=== PATIENT | male | born 1960 | race Caucasian/White ===

== ENCOUNTER 2022-01-22 15:15 | Outpatient (REF) | payer MEDICARE, MEDICAID, SELFPAY ==
--- NOTE | ~2022-01-22 | US_ITS ---
EXAMINATION: US RETROPERITONEAL LIMITED (RENAL ONLY) CLINICAL INFORMATION: Other obstructive and reflux uropathy. COMPARISON: US retroperitoneal limited (renal only) 10/07/2019. CT abdomen and pelvis without contrast 10/13/2019. TECHNIQUE: Real-time imaging of the kidneys. FINDINGS: RIGHT KIDNEY: 10.8 x 5.5 x 5.2 cm (SAG x AP x TRV). The kidney is normal in size, contour, and echogenicity. Renal cortical thickness is normal. No hydronephrosis. There is an anechoic cyst in the upper pole measuring 1.6 x 1.5 x 1.7 cm. There is an echogenic stone midpole measuring 0.4 x 0.2 cm. There is an apparent, junctional defect in the lower pole cortex which appears slightly echogenic. LEFT KIDNEY: 11.5 x 5.5 x 3.8 cm (SAG x AP x TRV). The kidney is normal in size, contour, and echogenicity. Renal cortical thickness is normal. No calculi or focal parenchymal lesions. No hydronephrosis. There are multiple punctate echogenic foci without shadowing. A prominent dromedary hump is noted in the midpole. US/US renal BI IMPRESSION: Nonobstructive echogenic stone midpole and anechoic cyst upper pole right kidney. Multiple punctate non-shadowing foci in the left kidney. No calculi. There is no hydronephrosis in either kidney.
== END 2022-01-22 15:16 | disposition home or self-care (01) ==
LOC: HO.US 15:15
PROVIDERS: PCP Internal Medicine; Visit Provider Urology
DX: N13.8 Other obstructive and reflux uropathy (principal)
CPT/HCPCS: 76775

== ENCOUNTER → 2022-02-03 08:31 | Outpatient (BNVA) | payer MEDICARE, MEDICAID, SELFPAY | PROVIDERS: PCP Internal Medicine; Visit Provider Urology | DX: N20.0 Calculus of kidney (principal); R39.12 Poor urinary stream; N52.9 Male erectile dysfunction, unspecified; N48.6 Induration penis plastica | CPT/HCPCS: 51798; 99202 ==

== ENCOUNTER → 2022-05-13 08:48 | Outpatient (BNVA) | payer MEDICARE, MEDICAID, SELFPAY | PROVIDERS: PCP Internal Medicine; Visit Provider Urology | DX: N48.6 Induration penis plastica (principal); N52.9 Male erectile dysfunction, unspecified | CPT/HCPCS: 99212 ==

== ENCOUNTER → 2022-11-19 08:23 | Outpatient (BNVA) | payer MEDICARE, MEDICAID, SELFPAY | PROVIDERS: PCP Internal Medicine; Visit Provider Urology | DX: N52.9 Male erectile dysfunction, unspecified (principal); N48.6 Induration penis plastica; N20.0 Calculus of kidney | CPT/HCPCS: 51798; 99212 ==

== ENCOUNTER 2023-04-29 08:45 | Outpatient (REF) | payer MEDICARE, MEDICAID, SELFPAY ==
--- NOTE | ~2023-04-29 | US_ITS ---
EXAMINATION: US RETROPERITONEAL LIMITED (RENAL ONLY) CLINICAL INFORMATION: Calculus of kidney. COMPARISON: Renal ultrasound 01/22/2022 and 10/07/2019. CT abdomen and pelvis 10/13/2019. TECHNIQUE: Real-time imaging of the kidneys. FINDINGS: RIGHT KIDNEY: 11.3 x 5.8 x 5.5 cm (SAG x AP x TRV). The kidney is normal in size, contour, and echogenicity. Renal cortical thickness is normal. No hydronephrosis. At the interpolar aspect, a 7 mm nonobstructing calculus is seen, with twinkle artifact. At the upper pole, a 2.3 cm in maximal diameter benign, simple cyst is seen. This requires no imaging follow-up. LEFT KIDNEY: 11.8 x 5.8 x 5.5 cm (SAG x AP x TRV). The kidney is normal in size, contour, and echogenicity. There is a dromedary hump. Renal cortical thickness is normal. No calculi or focal parenchymal lesions. No hydronephrosis. There are echogenic foci which do not meet formal ultrasound criteria for calculi. US/US renal BI IMPRESSION: 1. A 7 mm nonobstructing right renal calculus is seen. No definite left renal calculus is seen. No hydronephrosis is noted bilaterally. 2. A 2.3 cm in maximal diameter benign, simple right renal upper pole cyst is seen, for which no imaging follow-up is recommended.
== END 2023-04-29 08:46 | disposition home or self-care (01) ==
LOC: HO.US 08:45
PROVIDERS: Visit Provider Urology
DX: N20.0 Calculus of kidney (principal)
CPT/HCPCS: 76775

== ENCOUNTER → 2023-05-24 09:18 | Outpatient (BNVA) | payer MEDICARE, MEDICAID, SELFPAY | PROVIDERS: Visit Provider Urology | DX: N20.0 Calculus of kidney (principal); N48.6 Induration penis plastica; N52.9 Male erectile dysfunction, unspecified; N40.0 Benign prostatic hyperplasia without lower urinary tract symptoms | CPT/HCPCS: 51798; 99212 ==

== ENCOUNTER 2023-11-07 07:45 | Outpatient (REF) | payer OTHER, SELFPAY ==
--- NOTE | ~2023-11-07 | US_ITS ---
EXAMINATION: US RETROPERITONEAL LIMITED (RENAL ONLY) CLINICAL INFORMATION: Calculus of kidney. COMPARISON: Renal ultrasound 04/29/2023 and 01/22/2022. CT abdomen and pelvis 10/13/2019. TECHNIQUE: Real-time imaging of the kidneys. Limited visualization due to bowel gas. FINDINGS: RIGHT KIDNEY: 11.0 x 5.9 x 5.5 cm (SAG x AP x TRV). Upper pole 2.3 x 2.4 x 2.6 cm cyst with benign features. There is no indication for follow-up imaging. Right renal midpole 0.8 cm calculus. No hydronephrosis. Limited visualization. LEFT KIDNEY: 11.1 x 5.7 x 5.4 cm (SAG x AP x TRV). No hydronephrosis. No renal calculi. Limited visualization. US/US renal BI IMPRESSION: 1. Right renal midpole 0.8 cm calculus. No hydronephrosis. 2. Right upper pole 2.6 cm cyst with benign features. There is no indication for follow-up imaging.
== END 2023-11-07 07:46 | disposition home or self-care (01) ==
LOC: HO.US 07:45
PROVIDERS: PCP Internal Medicine; Visit Provider Urology
DX: N20.0 Calculus of kidney (principal)
CPT/HCPCS: 76775

== ENCOUNTER 2023-12-26 10:31 | Outpatient (AMB) | payer OTHER, SELFPAY ==
--- NOTE | 2023-12-26 12:13 | A.OFFVIS_ITS ---
Intake Intake Visit Reasons: 6m/US(11/07) Allergies No Known Allergies [No Known Allergies*] Allergy (Verified 05/24/23 09:23) Medication List - Last Reconciled 12/26/23 by Abdirashid Lopez MD bupropion HCl mg PO buspirone mg PO ibuprofen mg PO metoprolol succinate ER mg PO metoprolol succinate ER mg PO tadalafil 5 mg PO DAILY 90 days trazodone mg PO venlafaxine ER mg PO HPI HPI Comments History of Present Illness Details 12/26/23---Telehealth---Don is a 63 ye ar old male. He is a patient of Dr. Cabrera. He is seen for the following urologic conditions: - nephrolithiasis - lower urinary tract symptoms - Peyronie's disease - erectile dysfunction The patient states he is doing well. I have reviewed renal ultrasound 11/07/2023. Right renal midpole 0.8 cm calculus. No hydronephrosis. Right upper pole 2.6 cm cyst with benign features. Plan- continue to monitor the kidney stone. Follow-up in 1 year renal ultrasound prior. Continue Cialis 5 mg daily Review of chart: LV: 05/24/23--Continue good effect with daily tadalafil Thinks he passed a stone last week Six month follow-up imaging Nephrolithiasis Longstanding Composition - 08/16 calcium oxalate stone monohydrate 80% Imaging - 01/19 renal ultrasound punctate stones bilateral - 05/20 renal ultrasound question right s mall stone Lower urinary tract symptoms Weak urinary stream Filling incomplete emptying No prior therapy Erectile dysfunction Progressive Able to obtain but cannot maintain erection Good response to daily tadalafil Peyronie's disease Not interfering with intercourse [facility] Medical History History of kidney stones Benign prostatic hyperplasia with lower urinary tract symptoms Other obstructive and reflux uropathy Surgical History History of surgery Review of Systems Const All systems reviewed & are unremarkable except as noted in HPI and below Reports no additional complaints Eyes Reports no additional complaints ENT Reports no additional complaints Card Denies dyspnea Resp Denies cough and Denies dyspnea GI Reports no additional complaints Musc Reports no additional complaints Skin/Breast Denies rash and Denies unusual bruising Neuro Reports no additional complaints Psych Reports no additional complaints Endo Reports no additional complaints Julius/Lymph Reports no additional complaints Aller/Immun Reports no additional complaints Results Reviewed Results Reviewed: Date of Service: 11/07/23 EXAMINATION: US RETROPERITONEAL LIMITED (RENAL ONLY) CLINICAL INFORMATION: Calculus of kidney. COMPARISON: Renal ultrasound 04/29/2023 and 01/22/2022. CT abdomen and pelvis 10/13/2019. TECHNIQUE: Real-time imaging of the kidneys. Limited visualization due to bowel gas. FINDINGS: RIGHT KIDNEY: 11.0 x 5.9 x 5.5 cm (SAG x AP x TRV). Upper pole 2.3 x 2.4 x 2.6 cm cyst with benign features. There is no indication for follow-up imaging. Right renal midpole 0.8 cm calculus. No hydronephrosis. Limited visualization. LEFT KIDNEY: 11.1 x 5.7 x 5.4 cm (SAG x AP x TRV). No hydronephrosis. No renal calculi. Limited visualization. IMPRESSION: 1. Right renal midpole 0.8 cm calculus. No hydronephrosis. 2. Right upper pole 2.6 cm cyst with benign features. There is no indication for follow-up imaging. Assessment & Plan Assessment & Plan (1) Nephrolithiasis: Code(s): N20.0 - Calculus of kidney (2) Erectile dysfunction: Code(s): N52.9 - Male erectile dysfunction, unspecified (3) Peyronie's disease: Code(s): N48.6 - Induration penis plastica (4) Benign prostatic hyperplasia with lower urinary tract symptoms: Code(s): N40.1 - Benign prostatic hyperplasia with lower urinary tract symptoms Plan Follow-up in 1 year renal ultrasound prior Continue Cialis 5 mg daily Orders: Orders US renal BI 10 Months N20.0 - Calculus of kidney Medications: Refilled tadalafil 5 mg PO DAILY 90 tabs 1RF sexual activity 90 days N40.1 - Benign prostatic hyperplasia with lower urinary tract symptoms, N52.01 - Erectile dysfunction due to arterial insufficiency Patient Instructions: The patient had an opportunity to ask questions regarding treatment plan. All questions were answered. Imaging, Laboratory studies and physical exam results were discussed and reviewed in detail. No major barriers to understanding were identified. The patient expressed understanding and agreement with the above treatment plan. The patient is aware they should contact our office by phone for worsening of their current condition or the appearance of new symptoms. Compliance is encouraged with any medications and followup testing that is ordered. It is a privilege to be allowed the opportunity to participate in the urologic care of your patient. If you have any questions or concerns regarding treatment for the above conditions please do not hesitate to contact me. The office telephone contact is [phone]. This note is constructed in part using voice recognition software. While every effort has been made to ensure accuracy credit card analyst errors may have been included. Yours sincerely, Abdirashid Lopez MD Telehealth Telehealth Location of provider rendering services: practice address Location of patient: address on file Patient Identification confirmed using: Name, : Yes Telehealth method: voice only Patient verbally consented to treatment: Yes Patient verbally consented to billing insurance company: Yes Patient informed of any privacy concerns related to visit: Yes Minutes spent on Phone/Video with Pt.: 15 Coding Level of Care Code Tele Est Pt Level 3 (54093) Diagnoses Nephrolithiasis N20.0 Erectile dysfunction N52.9 Peyronie's disease N48.6 Benign prostatic hyperplasia with lower urinary tract symptoms N40.1
== END 2023-12-26 13:04 | disposition home or self-care (01) ==
LOC: HO.HUSH 10:31
PROVIDERS: PCP Internal Medicine; Visit Provider Urology
DX: N20.0 Calculus of kidney (principal); N52.9 Male erectile dysfunction, unspecified; N48.6 Induration penis plastica; N40.1 Benign prostatic hyperplasia with lower urinary tract symptoms
CPT/HCPCS: 99442

== ENCOUNTER → 2023-12-26 10:31 | Outpatient (BNVA) | payer OTHER, SELFPAY | PROVIDERS: PCP Internal Medicine; Visit Provider Urology ==

== ENCOUNTER 2025-02-08 10:43 | Outpatient (REF) | payer MEDICARE, SELFPAY ==
--- NOTE | ~2025-02-08 | US_ITS ---
CLINICAL HISTORY: N20.0 - Calculus of kidney US Renal Comparison: US/SR - US RENAL BI - 11/07/23 08:03 EST Findings: Examination limited by patient's body habitus and bowel gas. Right kidney normal in echotexture measures 12.1 cm x 5.7 cm x 4.8 cm. A 2.2 cm x 2.1 cm x 2.6 cm simple anechoic cyst of the right kidney similar to previous examination. Left kidney normal in echotexture measures 10.6 cm x 5.9 cm x 4.5 cm. No collecting system dilatation of either kidney. Normal color Doppler. Multiple echogenic foci seen in the left kidney which may represent blood vessels versus nonobstructing stones. IMPRESSION: 1. Multiple punctate echogenic foci in left kidney may represent blood vessels versus calculi. 2. No hydronephrosis bilaterally. 3. Stable small right renal simple cyst. This document has been electronically signed by: Shanthi Morales MD on 02/08/2025 17:12:29
--- OUTSIDE RECORDS SUMMARY | 2025-02-08 12:18 | XMS_ITS | Clinical Summary ---
Author Organization [facility] [address] [place] [address] [place] [phone] Phone Care Team Providers Care External Grinder Tool Name Role Phone Yvonne Haider MD Primary Care Prov ider Allergies Active Allergy Reactions Criticality Noted Date Comments Thiago Inhibitors Swelling 06/21/2013 Not sure if this was culprit but intermittent angioedema improved after d/c Medications atorvastatin (LIPITOR) 20 mg tablet Take 1 tablet (20 mg total) by mouth 1 (one) time each day. 90 tablet 1 4 Active buPROPion XL (WELLBUTRIN XL) 300 mg 24 hr tablet Take 1 tablet (300 mg total) by mouth 1 (one) time each day in the morning. 90 tablet 4 Active venlafaxine XR (EFFEXOR-XR) 150 mg 24 hr capsule Take 1 capsule (150 mg total) by mouth 1 (one) time each day. 90 capsule 4 Active pantoprazole (PROTONIX) 20 mg EC tablet Take 1 tablet (20 mg total) by mouth 1 (one) time each day. 4 Active tadalafiL (CIALIS) 5 mg tablet Take 1 tablet (5 mg total) by mouth 1 (one) time each day if needed for erectile dysfunction. Active traZODone (DESYREL) 150 mg tablet TAKE ONE TABLET EVERY NIGHT AT BEDTIME 90 tablet 1 5 Active metoprolol succinate (TOPROL-XL) 100 mg 24 hr tablet Take 1 tablet (100 mg total) by mouth 1 (one) time each day. 90 each 1 5 Active busPIRone (BUSPAR) 15 mg tablet Take 2 tablets (30 mg total) by mouth 2 (two) times a day. 360 each 1 5 Active busPIRone (BUSPAR) 15 mg tablet Take 2 tablets (30 mg total) by mouth 2 (two) times a day. 01/24/20 25 Discontinu ed(Reorder ) metoprolol succinate (TOPROL-XL) 100 mg 24 hr tablet Take 1 tablet (100 mg total) by mouth 1 (one) time each day. 01/24/20 25 Discontinu ed(Reorder ) busPIRone (BUSPAR) 15 mg tablet Take 2 tablets (30 mg total) by mouth 2 (two) times a day. 90 each 1 5 01/29/20 25 Discontinu ed(Reorder ) Active Problems Problem Noted Date Diagnosed Date Prediabetes 11/08/2023 Assessment & Plan (01/14/2025 10:03 AM EST): Last A1C: 5.7. Well controlled on a diet. Will recheck in 3 months. Orders: Comprehensive metabolic panel; Future Lipid panel with reflex to direct LDL; Future Neck pain, chronic 12/25/2021 LYLE (generalized anxiety disorder) 05/26/2017 Assessment & Plan (01/14/2025 10:03 AM EST): As above. Recurrent major depressive disorder, in remissio n 05/26/2017 Assessment & Plan (01/14/2025 10:03 AM EST): Depressive/anxiety symptoms are well controlled. Continue Bupropion, buspirone, and venlafaxine. Weak urine stream 03/25/2015 Urticaria 08/21/2014 Overview (10/29/2024): Unclear etiology. Saw Dr. Pederson. Lisinopril d/fercho due to angioedema Eczema 08/12/2011 Essential hypertension, benign 08/12/2011 Assessment & Plan (01/14/2025 10:03 AM EST): BP has been well controlled on Metoprolol 100mg. Denies any chest pain, palpitations, sob, dizziness. Complaint with the medication. Will continue same regimen. Recommended to check his BP at home around 2 times a week and keep a record as it is possible that we will need to adjust the medication as he has been losing weight. Orders: Comprehensive metabolic panel; Future Lipid panel with reflex to direct LDL; Future Gout 08/12/2011 Overview (10/29/2024): Right knee usually Hearing loss 08/12/2011 Encounters Date Type Department Care Team Description 01/14/2025 9:45 AM EST Telemedicine Adult Medicine [address] [phone] Yvonne Haider MD Type 2 diabetes mellitus without complication, without long-term current use of insulin ([facility]) (Primary Dx); Essential hypertension, benign; Recurrent major depressive disorder, in remission ([facility]); LYLE (generalized anxiety disorder); Screening for depression from Last 3 Months Immunizations Name Administration Dates Next Due Influenza Quadravalent, MDCK , 0.5ml, preservative free (Flucelvax) 6mo and older 11/08/2023,10/26/2022,12/25/2021,2019,10/24/2019 Influenza trivalent, 0.5mL, preservative free (Fluarix; FluLaval; Fluzone) ages 6mo and older (Afluria) 3 years and older 08/05/2017,08/26/2016,08/18/2015,2012,12/11/2012,08/12/2011 Influenza, Unspecified 08/05/2017 Tdap Tetanus diptheria acell ular pertussis (Boostrix; Adacel) 7yo and older 08/20/2014 Surgical History Surgery Date Site/Laterality Comments OTHER SURGICAL HISTORY 12/2009 PROCEDURE: CA COLECTOMY PARTIAL W/ANASTOMOSIS; COMMENT: Elective sigmoid colectomy for recurrent diverticulitis; Dr. Zuñiga, [facility] OTHER SURGICAL HISTORY PROCEDURE: HISTORY OTHER; COMMENT: lipoma resection - childhood COLONOSCOPY 11/2009 PROCEDURE: HISTORICAL COLONOSCOPY; COMMENT: Dr. Padilla; diverticulosis Medical History Medical History Date Comments Eczema 08/12/2011 DX:Eczema Essential hypertension, benign 08/12/2011 D X:Essential hypertension, benign Gout 08/12/2011 DX:Gout Hearing loss 08/12/2011 DX:Hearing loss Diverticulitis of colon 11/28/2008 DX:Diver ticulitis of colon; COMMENT: multiple bouts; status post sigmoid colectomy 2009 History of COVID-19 DX:History o f COVID-19 Family History Medical History Relation Name Comments CABG Father 1st HI at 32 Diabetes Father Other: carotid stenosis Father Other: thoracic aortic aneurysm Father Breast cancer Neg Hx Colon cancer Neg Hx Prostate cancer Neg Hx Relation Name Status Comments Father Mother Alive Social History Tobacco Use Types Packs/Day Years Used Date Smoking Tobacco: Never Smokeless Tobacco: Never Alcohol Use Standard Drinks/Week Comments No 0 (1 standard drink = 0.6 oz pur e alcohol) Housing Instability Answer Date Recorde d Are you worried that in the next 2 months you may not have stable housing? No 01/07/2025 Food Access & Nutrition Answer Date Rec orded Do you have access to a vari ety of food including fruits and vegetables? Yes 01/07/2025 Access to Healthcare Answer Date Record ed Within the last 3 months, ho w many times did you visit the emergency department for your medical care? 0 01/07/2025 Health Literacy Answer Date Recorded How often do you need to hav e someone help you when you read instructions, pamphlets, or other written material from your doctor or pharmacy? Never 01/07/2025 Caregiver: How often do you need to have someone help you when you read instructions, pamphlets, or other written material from your doctor or pharmacy? Not on file 01/07/2025 Financial Risk Answer Date Recorded How hard is it for you to pa y for the very basics like food, housing, medical care, and air conditioning / heating? Not very hard 01/07/2025 Transportation Answer Date Recorded Has the lack of transportati on kept you from meetings, work, or from getting things needed for daily living? No Has the lack of transportati on kept you from medical appointments or from getting medications? No 01/07/2025 Social Isolation Answer Date Recorded How often do you feel lonely or isolated from th ose around you? Never 01/07/2025 Food Risk Answer Date Recorded Within the past 12 months we worried whether our food would run out before we got money to buy more. Never true 01/07/2025 Within the past 12 months th e food we bought just didn't last and we didn't have money to get more. Never true 01/07/2025 Dependent Care Answer Date Recorded Do you need help finding or paying for care for your loved ones. For example, director maternal child or elderly care for an older adult? No 01/07/2025 Education Answer Date Recorded Do you think completing more education or training, like finishing a GED, going to college, or learning a trade, would be helpful for you? No 01/07/2025 Employment and Income Answer Date Recor ded During the last four weeks, have you been actively looking for work? No 01/07/2025 Living Situation Answer Date Recorded What is your living situation? 0 01/07/2025 Sex and Gender Information Value Date Recorded Sex Assigned at Not on file Legal Sex Male 11:34 PM EST Gender Identity Not on file Sexual Orientation Not on file Obstetrics History Last Filed Vital Signs Vital Sign Reading Time Taken Comments Blood Pressure 122/70 05/29/2024 8:28 AM EDT Pulse 76 05/29/2024 8:28 AM EDT Temperature - - Respiratory Rate - - Oxygen Saturation - - Inhaled Oxygen Concentration - - Weight 102 kg (223 lb 12.8 oz) 05/29/2024 8:28 A M EDT Height 182.9 cm (6') 09/26/2023 8:37 AM EDT Body Mass Index 30.35 09/26/2023 8:37 AM EDT Plan of Treatment Upcoming Encounters Date Type Department Care Team (Late st Contact Info) Description 06/10/2025 11:00 AM EDT Office Visit Adult Medicine [address] [phone] Yvonne Haider MD [address] [place] [phone] Health Maintenance Due Date Last Done Comments Diabetes: Annual Foot Exam 1970 Diabetes: Annual Retina Eye Exam 1970 Pneumococcal Vaccine: 50+ Years (1 of 2 - PCV) 1979 Pneumococcal Vaccine: Pediatrics (0 to 5 Years) and At-Risk Patients (6 to 64 Years) (1 of 2 - PCV) 1979 HIV Screening 11/06/2022 Medicare Annual Wellness Visit 11/06/2022 COVID-19 Vaccine (2 - season) 2024 04/02/2021 Influenza Vaccine (#1) 2024 , 10/26/2022, 12/25/2021, Additional history exists DTaP,Tdap,and Td Vaccines (2 - Td or Tdap) 08/20/2024 08/20/2014 Diabetes: Annual Urine Albumin-Creatinine Ratio (uACR) 01/14/2025 Diabetes: Blood Sugar Control Test (HGBA1C) 02/17/2025 08/20/2024, 08/20/2024, 05/28/2024 Diabetes: Annual GFR (Glomerular Filtration Rate) 05/28/2025 05/28/2024, 05/28/2024 Hypertension/CHF/CAD Annual BMP Blood Test 05/28/2025 05/28/2024, 05/28/2024 Depression Screening 01/07/2026 01/07/2025, 08/01/20 24 Social Influencers of Health Screening 01/07/2026 01/07/2025 Cholesterol Screening (Lipid Panel) 05/28/2029 05/28/2024, 05/28/2024 Colorectal Cancer Screening: Colonoscopy 05/10/2032 05/10/2022 RSV Immunization Patients 60+ Years Old (1 - 1-dose 75+ series) 2035 Hepatitis C Screening Completed 05/21/2013 Zoster Vaccines Completed 08/02/2024, 05/29/2024 HIB Vaccines Aged Out No longer eligi ble based on patient's age to complete this topic HPV Vaccines Aged Out No longer eligi ble based on patient's age to complete this topic Hepatitis A Vaccines Aged Out No long er eligible based on patient's age to complete this topic Hepatitis B Vaccines Aged Out No long er eligible based on patient's age to complete this topic IPV Vaccines Aged Out No longer eligi ble based on patient's age to complete this topic MMR Vaccines Aged Out No longer eligi ble based on patient's age to complete this topic Meningococcal ACWY Vaccine Aged Out N o longer eligible based on patient's age to complete this topic Meningococcal B Vacine Aged Out No lo nger eligible based on patient's age to complete this topic RSV Immunization Patients Under 20 months Aged Out No longer eligible based on patient's age to complete this topic Varicella Vaccines Aged Out No longer eligible based on patient's age to complete this topic Procedures Procedure Name Priority Date/Time Associated Diagnosis Comments HEMOGLOBIN A1C Routine 08/20/2024 DEPRESSION SCREENING Routine 08/01/2024 ANNUAL BMP BLOOD TEST Routine 05/28/2024 LIPID PANEL Routine 05/28/2024 COLONOSCOPY Routine 05/10/2022 HEPATITIS C SCREENING Routine 05/21/2013 from Last 3 Months or Most Recently Relevant to Health Maintenance Results * Hemoglobin A1c (08/20/2024) Pathologist [facility] Hemoglobin A1C 5.7 <=6.5 % Blood Venous blood specimen / Unknown Historical Provider LAB BLOOD ORDERABLES Rosa l Result * Depression Screening (08/01/2024) Pathologist [facility] Depression Screening Abstracted Historical Provider HEALTH MAINTENANCE Final Result * Annual BMP Blood Test (05/28/2024) Pathologist [facility] Annual BMP Blood Test Abstracted Historical Provider HEALTH MAINTENANCE Final Result * (ABNORMAL) Lipid panel (05/28/2024) Pathologist [facility] LDL/HDL Ratio 4 0 - 4 Triglycerides 171(A) 0 - 150 mg/dL Cholesterol 138 0 - 200 mg/dL HDL 39(A) >=40 mg/dL LDL Cholesterol 65 0 - 100 mg/dL Blood Venous blood specimen / Unknown Historical Provider LAB BLOOD ORDERABLES Orsa l Result * Colonoscopy (05/10/2022) Pathologist [facility] Colonoscopy No Interpretation , Abstracted Anatomical Region Laterality Modality Other Result [facility] Historical Provider HEALTH MAINTENANCE Final Result * Hepatitis C Screening (05/21/2013) Pathologist [facility] Hepatitis C Screening Abstracted Historical Provider HEALTH MAINTENANCE Final Result from Last 3 Months or Most Recently Relevant to Health Maintenance Insurance MEDICARE [place] - [place] Care Teams External Grinder Tool Relationship Specialty Start Date End Date Yvonne Haider MD [address] [place] [phone] PCP - General Internal Medicine 07/23/22
--- OUTSIDE RECORDS SUMMARY | 2025-02-08 12:18 | XMS_ITS | Encounter Summary ---
Author Organization [facility] Address [address] [place] [address] Care Team Providers Care Pharmacy Technician Program Director Name Role Phone Yvonne Haider MD Primary Care Prov ider Encounter Details Date Type Department Care Team (Late st Contact Info) Description 01/14/2025 9:45 AM EST Telemedicine Adult Medicine [address] [phone] Yvonne Haider MD [address] [place] [id number] Type 2 diabetes mellitus without complication, without long-term current use of insulin (CMS/HCC) (Primary Dx); Essential hypertension, benign; Recurrent major depressive disorder, in remission (CMS/HCC); LYLE (generalized anxiety disorder); Screening for depression Social History Tobacco Use Types Packs/Day Years [...] on file Sexual Orientation Not on file documented as of this encounter Progress Notes * Yvonne Haider MD - 01/14/2025 9:45 AM ESTAssociated Problem(s): Essential hypertension, benign BP has been well controlled on Metoprolol [...] panel with reflex to direct LDL; Future * Yvonne Haider MD - 01/14/2025 9:45 AM ESTAssociated Problem(s): Prediabetes Last A1C: 5.7. Well controlled on a diet. Will recheck in 3 months. Orders: Comprehensive metabolic panel; Future Lipid panel with reflex to direct LDL; Future * Yvonne Haider MD - 01/14/2025 9:45 AM ESTAssociated Problem(s): LYLE (generalized anxiety disorder) As above. * Yvonne Haider MD - 01/14/2025 9:45 AM ESTAssociated Problem(s): Recurrent major depressive disorder, in remission (CMS/HCC) Depressive/anxiety symptoms are well controlled. Continue Bupropion, buspirone, and venlafaxine. * Yvonne Haider MD - 01/14/2025 9:45 AM EST Images from the original note were not included. Telemedicine Visit Don Schreiber is a 64 y.o. male presenting for No chief complaint on file. Patient with a pmh of HTN, DM, depressive and anxiety disorder, seen today for med review. Feels well, compliant with medications, follows a healthy diet with low carb, eliminated sugar, very active physically at home. Able to lose 30 pounds since last visit. Current weight is 192 lb. Feels well, mood is stable, no SI, HI. No depressive symptoms. Last A1C: 5.7 The following portions of the patient's history were reviewed by a provider in this encounter and updated as appropriate: Depression Screening Over the last 2 weeks, how often have you been bothered by little interest or pleasure in doing things?: (Patient-Rptd) Not at all Over the last 2 weeks, how often have you been bothered by feeling down, depressed, or hopeless?: (Patient-Rptd) Not at all Depression Risk: (Patient-Rptd) 0 PHQ9 Full Set of Questions Over the last 2 weeks, how often have you been bothered by little interest or pleasure in doing things?: (Patient-Rptd) Not at all Over the last 2 weeks, how often have you been bothered by feeling down, depressed, or hopeless?: (Patient-Rptd) Not at all Depression Risk Score NEW: (Patient-Rptd) 0 There were no vitals taken for this visit. Physical exam is deferred due to being a telehealth visit. Assessment & Plan Type 2 diabetes mellitus without complication, without long-term current use of insulin (CMS/HCC) Last A1C: 5.7. Well controlled on a diet. Will recheck in 3 months. Orders: Comprehensive metabolic panel; Future Lipid panel with reflex to direct LDL; Future Essential hypertension, benign BP has been well controlled on Metoprolol [...] panel with reflex to direct LDL; Future Recurrent major depressive disorder, in remission (CMS/HCC) Depressive/anxiety symptoms are well controlled. Continue Bupropion, buspirone, and venlafaxine. LYLE (generalized anxiety disorder) As above. Screening for depression Negative screening. All questions and concerns were addressed. Patient verbalizes understanding and agrees with above treatment plan. Patient was advised to contact the office with any worsening symptoms or if new or existing problems arise. Patient to follow- up in 3 months. I have applied the code G2211 to this patient???s visit as the primary care provider dealing with (DM, HTN, depression, anxiety) leading to the extensive work up, and management associated with the medical care of this patient. This patient???s serious conditions and complex medical conditions alsorequired several consultants needing management and coordination through my office. I have reviewedall information as it pertains to the management of this patient for final approval. Yvonne Silver MD [facility] [address] Dept: [phone] Dept Telehealth Statement Patient was identified by name and . I conducted this virtual encounter from a non-medical private location via audio only because the patient could not connect video, a total time of 15 minutes was spent providing counseling and direct care Don Schreiber was located at home. Prior to the interview, the risks and benefits of telemedicine were discussed with the patient and verbal consent wasobtained. documented in this encounter Plan of Treatment Upcoming Encounters Date Type Department Care Team (Late st Contact Info) Description 06/10/2025 11:00 AM EDT Office Visit [address] [phone] Yvonne Haider MD [address] [place] [id number] Scheduled Orders Name Type Priority Associated Diagnoses Orde r Schedule Comprehensive metabolic panel Lab Routine Type 2 diabetes mellitus without complication, without long-term current use of insulin (CMS/HCC) Essential hypertension, benign 1 Occurrences starting 01/14/2025 until 01/14/2026 Lipid panel with reflex to direct LDL Lab Routine Type 2 diabetes mellitus without complication, without long-term current use of insulin (CMS/HCC) Essential hypertension, benign 1 Occurrences starting 01/14/2025 until 01/14/2026 documented as of this encounter Visit Diagnoses Diagnosis Type 2 diabetes mellitus without complication, without long-term current use of insulin ([facility])- Primary Essential hypertension, benign Recurrent major depressive disorder, in remission ([facility]) LYLE (generalized anxiety disorder) Generalized anxiety disorder Screening for depression documented in this encounter Additional Health Concerns Assessment Noted Time PHQ-9 Depression Total Score: 0 01/07/20 25 11:06 AM EST documented as of this encounter Care Teams Pharmacy Technician Program Director Relationship Specialty Start Date End Date Yvonne Haider MD [address] [place] [phone] PCP - General Internal Medicine 07/23/22 documented as of this encounter
== END 2025-02-08 10:44 | disposition home or self-care (01) ==
LOC: HO.US 10:43
PROVIDERS: PCP Internal Medicine; Visit Provider Urology
DX: N20.0 Calculus of kidney (principal)
CPT/HCPCS: 76775

== ENCOUNTER → 2025-02-08 10:45 | Outpatient (BNV) | payer MEDICARE, MEDICAID, SELFPAY | PROVIDERS: PCP Internal Medicine; Visit Provider Specialist | DX: N28.1 Cyst of kidney, acquired (principal) | CPT/HCPCS: 76775 ==

== ENCOUNTER → 2025-04-09 11:45 | Outpatient (BNVA) | payer MEDICARE, MEDICAID, SELFPAY | PROVIDERS: PCP Internal Medicine; Visit Provider Urology ==

== ENCOUNTER 2025-04-26 14:46 | Outpatient (AMB) | payer MEDICARE, MEDICAID, SELFPAY ==
--- OUTSIDE RECORDS SUMMARY | 2025-04-26 14:48 | XMS_ITS | Clinical Summary ---
Author Organization [facility] [address] [place] [address] [place] [phone] Phone Care Team Providers Care Avionics Installer Name Role Phone Yvonne Haider MD Primary Care Prov ider Allergies Active Allergy Reactions Criticality Noted Date Comments Thiago Inhibitors Swelling 06/21/2013 Not sure if this was culprit but intermittent angioedema improved after d/c Medications pantoprazole (PROTONIX) 20 mg EC tablet Take [...] a day. 360 each 1 5 Active buPROPion XL (WELLBUTRIN XL) 300 mg 24 hr tablet TAKE ONE TABLET EVERY MORNING 90 tablet 5 Active venlafaxine XR (EFFEXOR-XR) 150 mg 24 hr capsule TAKE ONE CAPSULE EVERY DAY 90 capsule 5 Active atorvastatin (LIPITOR) 20 mg tablet TAKE ONE TABLET EVERY DAY 90 tablet 1 5 Active atorvastatin (LIPITOR) 20 mg tablet Take 1 tablet (20 mg total) by mouth 1 (one) time each day. 90 tablet 1 4 025 Discontinued Active Problems Problem Noted Date Diagnosed Date Prediabetes 11/08/2023 Assessment & Plan (01/14/2025 10:03 AM EST): Last A1C: 5.7. Well controlled on a diet. Will recheck in 3 months. Orders: Comprehensive metabolic panel; Future Lipid panel with reflex to direct LDL; Future Neck pain, chronic 12/25/2021 LYLE (generalized anxiety disorder) 05/26/2017 Assessment & Plan (01/14/2025 10:03 AM EST): As above. Recurrent major depressive d isorder, in remission (CMS/[facility] V24) 05/26/2017 Assessment & Plan (01/14/2025 10:03 AM [...] (10/29/2024): Right knee usually Hearing loss 08/12/2011 Immunizations Name Administration Dates Next Due Influenza Quadravalent, MDCK , 0.5ml, preservative free (Flucelvax) 6mo and older 11/08/2023,10/26/2022,12/25/2021,2019,10/24/2019 Influenza trivalent, 0.5mL, preservative free (Fluarix; FluLaval; Fluzone) ages 6mo and older (Afluria) 3 years and older 08/05/2017,08/26/2016,08/18/2015,2012,12/11/2012,08/12/2011 Influenza, Unspecified 08/05/2017 Tdap Tetanus diptheria acell ular pertussis (Boostrix; Adacel) 7yo and older 08/20/2014 Surgical History Surgery Date Site/Laterality Comments OTHER SURGICAL HISTORY 12/2009 PROCEDURE: [place] COLECTOMY PARTIAL W/ANASTOMOSIS; COMMENT: Elective sigmoid colectomy for recurrent diverticulitis; Dr. Zuñiga, [facility] OTHER SURGICAL HISTORY PROCEDURE: HISTORY OTHER; COMMENT: [...] History Relation Name Comments CABG Father 1st SC at 32 Diabetes Father Other: carotid stenosis [...] care for your loved ones. For example, teacher early childhood development or elderly care for an older adult? [...] 11:00 AM EDT Office Visit Adult Medicine [address] [phone] Yvonne Haider MD [address] [place] [phone] Health Maintenance Due Date Last Done Comments Pneumococcal Vaccine: 50+ Years (1 of 2 - PCV) 1979 Pneumococcal Vaccine: Pediatrics (0 to 5 Years) and At-Risk Patients (6 to 64 Years) (1 of 2 - PCV) 1979 HIV Screening 11/06/2022 Medicare Annual Wellness Visit 11/06/2022 COVID-19 Vaccine (2 - season) 2024 04/02/2021 DTaP,Tdap,and Td Vaccines (2 - Td or Tdap) 08/20/2024 08/20/2014 Hypertension/CHF/CAD Annual BMP Blood Test 05/28/2025 05/28/2024, 05/28/2024 Influenza Vaccine (Season Ended) 2025 11/08/2023, 10/26/2022, 12/25/2021, Additional history exists Depression Screening 01/07/2026 01/07/2025, 08/01/20 24 Social Influencers of Health Screening 01/07/2026 01/07/2025 Cholesterol Screening (Lipid Panel) 05/28/2029 05/28/2024, 05/28/2024 Colorectal Cancer Screening: Colonoscopy 05/10/2032 05/10/2022 RSV Immunization Adult Patients (1 - 1-dose 75+ series) 2035 Hepatitis [...] age to complete this topic Meningococcal B Vaccine Aged Out No l onger eligible based on patient's age to complete this topic RSV Immunization Patients Under 20 months Aged Out No longer eligible based on patient's age to complete this topic Varicella Vaccines Aged Out No longer eligible based on patient's age to complete this topic Procedures Procedure Name Priority Date/Time Associated Diagnosis Comments EXTERNAL ULTRASOUND REPORT Routine 02/08/2025 10:13 AM EDT DEPRESSION SCREENING Routine 08/01/2024 ANNUAL BMP BLOOD TEST Routine 05/28/2024 LIPID PANEL Routine 05/28/2024 COLONOSCOPY Routine 05/10/2022 HEPATITIS C SCREENING Routine 05/21/2013 from Last 3 Months or Most Recently Relevant to Health Maintenance Results * External Ultrasound Report (02/08/2025 10:13 AM EDT) Anatomical Region Laterality Modality Ultrasound us Abdirashid Lopez MD [facility] US PROCEDURES Final Result * Depression Screening (08/01/2024) Depression Screening Abstracted us Historical Provider HEALTH MAINTENANCE Final Result * Annual BMP Blood Test (05/28/2024) [facility] Annual BMP Blood Test Abstracted [facility] Provider HEALTH MAINTENANCE Final Result * (ABNORMAL) Lipid panel (05/28/2024) [facility] LDL/HDL Ratio 4 0 - 4 Triglycerides 171(A) 0 - 150 mg/dL Cholesterol 138 0 - 200 mg/dL HDL 39(A) >=40 mg/dL LDL Cholesterol 65 0 - 100 mg/dL Blood Venous blood specimen / Unknown [facility] Provider LAB BLOOD ORDERABLES Rosa l Result * Colonoscopy (05/10/2022) [facility] Colonoscopy No Interpretation , Abstracted Anatomical Region Laterality Modality Other [facility] Provider HEALTH MAINTENANCE Final Result * Hepatitis C Screening (05/21/2013) [facility] Hepatitis C Screening Abstracted [facility] Provider HEALTH MAINTENANCE Final Result from Last 3 Months or Most Recently Relevant to Health Maintenance Insurance MEDICARE [place] - [place] Care Teams Avionics Installer Relationship Specialty Start Date End Date Yvonne Haider MD [address] [place] [phone] PCP - General Internal Medicine 07/23/22
--- NOTE | 2025-04-26 14:51 | MHC.OFFVIS ---
Intake Visit Reasons: FU renal Ultrasound Intake Note: Patient is present for follow up/US Urology Med: Tadalafil Antibiotic Allergy: None Blood Thinner: None PVR:211ml Allergies No Known Allergies [No Known Allergies*] Allergy (Verified 04/09/25 11:46) Medication List - Last Reconciled 04/26/25 by Abdirashid Lopez MD bupropion HCl XL mg PO buspirone mg PO ibuprofen mg PO metoprolol succinate ER mg PO tadalafil 5 mg PO DAILY 90 days tamsulosin (Flomax) 0.4 mg PO BEDTIME trazodone mg PO venlafaxine ER mg PO HPI Comments Details: 04/26/25--Don is a 64-year-old male who has been followed for kidney stones he had a renal ultrasound done on 02/08/2025 with high per echoic with punctate hyperechoic changes which may be related to kidney stones versus blood vessels urinalysis today is negative bladder scan PVR is elevated in review of his chart I do not notice a recent PSA testing History of Present Illness The patient is a 64-year-old male presenting with urinary symptoms. He has been experiencing incomplete bladder emptying, noted by an elevated post-void residual volume on bladder scan. The patient was previously diagnosed with nephrolithiasis, with recent imaging showing potential small stones. He has symptoms consistent with benign prostatic hyperplasia, including urgency, hesitancy, and weak stream, particularly exacerbated throughout the day. He manages erectile dysfunction with daily tadalafil successfully. There has been no recent PSA test, as found upon chart review, and urinalysis conducted today is negative. Urinary Symptoms Review - Incomplete bladder emptying noted on bladder scan. - Intermittent urgency and weak stream, primarily worsening through the day. - Hesitancy noted when initiating urination. - Nocturnal symptoms not specifically reported. - No pain or pressure symptoms discussed. Results - Tests and Diagnostics: - Renal ultrasound on 02/08/25: Hyperechoic changes suggestive of nephrolithiasis versus blood vessels. Discussion Notes I discussed with the patient the importance of addressing his symptoms of urinary retention and the possible contributions of benign prostatic hyperplasia. We reviewed the potential need for procedural evaluation via cystoscopy to examine the urethra and bladder for obstruction, with understanding consent given its discomforting nature mitigated by numbing agents. I explained the rationale for initiating alfuzosin to alleviate urinary symptoms and recommended monitoring their effectiveness with a follow-up in 10-12 weeks. It was agreed that PSA testing should precede this follow-up visit. Detailed information regarding lifestyle adjustments and medication use was communicated for optimal outcomes. The patient was agreeable to pursue these plans and provided informed consent for the proposed cystoscopy. Plan Patient Instructions Patient was informed and verbally consented to the use of an ambient scribe for clinic note documentation during this visit. 12/26/23---Telehealth---Don is a 63 year old male. He is a patient of Dr. Cabrera. He is seen for the following urologic conditions: - nephrolithiasis - lower urinary tract symptoms - Peyronie's disease - erectile dysfunction The patient states he is doing well. I have reviewed renal ultrasound 11/07/2023. Right renal midpole 0.8 cm calculus. No hydronephrosis. Right upper pole 2.6 cm cyst with benign features. Plan- continue to monitor the kidney stone. Follow-up in 1 year renal ultrasound prior. Continue Cialis 5 mg daily LV: 05/24/23--Continue good effect with daily tadalafil Thinks he passed a stone last week Six month follow-up imaging Nephrolithiasis Longstanding Composition - 08/16 calcium oxalate stone monohydrate 80% Imaging - 01/19 renal ultrasound punctate stones bilateral - 05/20 renal ultrasound question right small stone Lower urinary tract symptoms Weak urinary stream Filling incomplete emptying No prior therapy Erectile dysfunction Progressive Able to obtain but cannot maintain erection Good response to daily tadalafil Peyronie's disease Not interfering with intercourse [facility] Medical History History of kidney stones Benign prostatic hyperplasia with lower urinary tract symptoms Other obstructive and reflux uropathy Surgical History History of surgery Review of Systems Const All systems reviewed & are unremarkable except as noted in HPI and below Reports no additional complaints Eyes Reports no additional complaints ENT Reports no additional complaints Card Reports no additional complaints Resp Reports no additional complaints GI Reports no additional complaints Reports as per HPI Musc Reports no additional complaints Skin/Breast Reports system reviewed and no additional complaints, except as documented Neuro Reports no additional complaints Psych Reports no additional complaints Endo Reports no additional complaints Julius/Lymph Reports no additional complaints Aller/Immun Reports no additional complaints Office Procedures Post Void Residual Post Residual Void Post Void Residual (PVR): 211 [id number] Void Residual by ultrasound Results Reviewed Results Reviewed: Date of Service: 02/08/25 CLINICAL HISTORY: N20.0 - Calculus of kidney US Renal Comparison: US/SR - US RENAL BI - 11/07/23 08:03 EST Findings: Examination limited by patient's body habitus and bowel gas. Right kidney normal in echotexture measures 12.1 cm x 5.7 cm x 4.8 cm. A 2.2 cm x 2.1 cm x 2.6 cm simple anechoic cyst of the right kidney similar to previous examination. Left kidney normal in echotexture measures 10.6 cm x 5.9 cm x 4.5 cm. No collecting system dilatation of either kidney. Normal color Doppler. Multiple echogenic foci seen in the left kidney which may represent blood vessels versus nonobstructing stones. IMPRESSION: 1. Multiple punctate echogenic foci in left kidney may represent blood vessels versus calculi. 2. No hydronephrosis bilaterally. 3. Stable small right renal simple cyst. Date of Service: 11/07/23 EXAMINATION: US RETROPERITONEAL LIMITED (RENAL ONLY) CLINICAL INFORMATION: Calculus of kidney. COMPARISON: Renal ultrasound 04/29/2023 and 01/22/2022. CT abdomen and pelvis 10/13/2019. TECHNIQUE: Real-time imaging of the kidneys. Limited visualization due to bowel gas. FINDINGS: RIGHT KIDNEY: 11.0 x 5.9 x 5.5 cm (SAG x AP x TRV). Upper pole 2.3 x 2.4 x 2.6 cm cyst with benign features. There is no indication for follow-up imaging. Right renal midpole 0.8 cm calculus. No hydronephrosis. Limited visualization. LEFT KIDNEY: 11.1 x 5.7 x 5.4 cm (SAG x AP x TRV). No hydronephrosis. No renal calculi. Limited visualization. IMPRESSION: 1. Right renal midpole 0.8 cm calculus. No hydronephrosis. 2. Right upper pole 2.6 cm cyst with benign features. There is no indication for follow-up imaging. Assessment & Plan Assessment & Plan (1) Nephrolithiasis: Code(s): N20.0 - Calculus of kidney Category: Medical (2) Erectile dysfunction: Code(s): N52.9 - Male erectile dysfunction, unspecified Category: Medical (3) Peyronie's disease: Code(s): N48.6 - Induration penis plastica Category: Medical (4) Benign prostatic hyperplasia with lower urinary tract symptoms: Code(s): N40.1 - Benign prostatic hyperplasia with lower urinary tract symptoms Category: Medical (5) Screening PSA (prostate specific antigen): Code(s): Z12.5 - Encounter for screening for malignant neoplasm of prostate Category: Medical Plan Continue Cialis 5 mg daily in the morning will add tamsulosin to take in the evening. PSA screening Follow-up for office cystoscopy Orders: Orders PSA,Total (Free>4and<10) Today N40.1 - Benign prostatic hyperplasia with lower urinary tract symptoms, Z12.5 - Encounter for screening for malignant neoplasm of prostate AMB Urinalysis Automated Today Z13.9 - Encounter for screening, unspecified Medications: New tamsulosin (Flomax) 0.4 mg PO BEDTIME 90 caps 2RF Refilled tadalafil 5 mg PO DAILY 90 days 90 tabs 3RF sexual activity N40.1 - Benign prostatic hyperplasia with lower urinary tract symptoms, N52.01 - Erectile dysfunction due to arterial insufficiency Patient Instructions: The patient had an opportunity to ask questions regarding treatment plan. The patient expressed understanding and agreement with the above treatment plan. The patient is aware they should contact our office by phone for worsening of their current condition or the appearance of new symptoms. Compliance is encouraged with any medications and followup testing that is ordered. It is a privilege to be allowed the opportunity to participate in the urologic care of your patient. If you have any questions or concerns regarding treatment for the above conditions please do not hesitate to contact me. The office telephone contact is [phone]. This note is constructed in part using voice recognition software. While every effort has been made to ensure accuracy paper reeler errors may have been included. Yours sincerely, Abdirashid Lopez MD Scribe Plan - Not visible on output: Patient was informed and verbally consented to the use of an ambient scribe for clinic note documentation during this visit. Coding Level of Care Code Est Pt Level 4 (48336) Complex EM visit Add On G2211 Diagnoses Nephrolithiasis N20.0 Erectile dysfunction N52.9 Peyronie's disease N48.6 Benign prostatic hyperplasia with lower urinary tract symptoms N40.1 Screening PSA (prostate specific antigen) Z12.5 CPT Codes Post Residual Void - PVR CPT Code: 73418-[id number] Void Residual by ultrasound ([id number])
== END 2025-04-26 15:25 | disposition home or self-care (01) ==
LOC: HO.HUSH 14:46
PROVIDERS: PCP Internal Medicine; Visit Provider Urology
DX: Z13.9 Encounter for screening, unspecified (principal)

== ENCOUNTER → 2025-04-26 14:46 | Outpatient (BNVA) | payer MEDICARE, MEDICAID, SELFPAY | PROVIDERS: PCP Internal Medicine; Visit Provider Urology | DX: Z12.5 Encounter for screening for malignant neoplasm of prostate (principal); N20.0 Calculus of kidney; N52.9 Male erectile dysfunction, unspecified; N48.6 Induration penis plastica; N40.1 Benign prostatic hyperplasia with lower urinary tract symptoms | CPT/HCPCS: 51798; 81003; 99212 ==

== ENCOUNTER 2025-07-15 08:50 | Outpatient (REF) | payer MEDICARE, MEDICAID, SELFPAY ==
[2025-07-15 11:06] LABS: PSA,Total (Free>4and<10) 0.94 ng/mL (0.00-4.00)
== END 2025-07-15 08:51 | disposition home or self-care (01) ==
LOC: HO.HMGCLDS 08:50
PROVIDERS: PCP Internal Medicine; Visit Provider Urology
DX: Z12.5 Encounter for screening for malignant neoplasm of prostate (principal); N40.1 Benign prostatic hyperplasia with lower urinary tract symptoms
CPT/HCPCS: 36415; 84153

== ENCOUNTER 2025-07-26 09:11 | Outpatient (AMB) | payer MEDICARE, MEDICAID, SELFPAY ==
--- NOTE | 2025-07-26 09:19 | MHC.OFFVIS ---
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 Don is a 64 year being followed for BPH, with LUTS of incomplete bladder emptying, nephrolithiasis and erectile disorder. Cystoscopy findings: prostatic urethra bilobar enlargement, mild prominence of median lobe, bulbous urethra WNL, no suspicious bladder lesions visualized Discussed treatment options, green light laser Plan proscar 5 mg daily 04/26/25--Don is a 64-year-old male who has been followed for kidney stones he had a renal ultrasound done on 02/08/2025 with punctate hyperechoic changes which may be related to kidney stones versus blood vessels. The patient is a 64-year-old male presenting with urinary symptoms. He has been experiencing incomplete bladder emptying, noted by an elevated post-void residual volume on bladder scan. The patient was previously diagnosed with nephrolithiasis, with recent imaging showing potential small stones. He has symptoms consistent with benign prostatic hyperplasia, including urgency, hesitancy, and weak stream, particularly exacerbated throughout the day. He manages erectile dysfunction with daily tadalafil successfully. There has been no recent PSA test, as found upon chart review, and urinalysis conducted today is negative. Urinary Symptoms Review - Incomplete bladder emptying noted on bladder scan. - Intermittent urgency and weak stream, primarily worsening through the day. - Hesitancy noted when initiating urination. - No pain or pressure symptoms discussed. Results - Tests and Diagnostics: - Renal ultrasound on 02/08/25: Hyperechoic changes suggestive of nephrolithiasis versus blood vessels. Discussion Notes I discussed with the patient the importance of addressing his symptoms of urinary retention and the possible contributions of benign prostatic hyperplasia. We reviewed the potential need for procedural evaluation via cystoscopy to examine the urethra and bladder for obstruction. Detailed information regarding lifestyle adjustments and medication use was communicated for optimal outcomes. 12/26/23---Telehealth---Don is a 63 year old male. He is a patient of Dr. Cabrera. He is seen for the following urologic conditions: - nephrolithiasis - lower urinary tract symptoms - Peyronie's disease - erectile dysfunction The patient states he is doing well. I have reviewed renal ultrasound 11/07/2023. Right renal midpole 0.8 cm calculus. No hydronephrosis. Right upper pole 2.6 cm cyst with benign features. Plan- continue to monitor the kidney stone. Follow-up in 1 year renal ultrasound prior. Continue Cialis 5 mg daily LV: 05/24/23--Continue good effect with daily tadalafil Thinks he passed a stone last week Six month follow-up imaging Nephrolithiasis Longstanding Composition - 08/16 calcium oxalate stone monohydrate 80% Imaging - 01/19 renal ultrasound punctate stones bilateral - 05/20 renal ultrasound question right small stone Lower urinary tract symptoms Weak urinary stream Filling incomplete emptying No prior therapy Erectile dysfunction Progressive Able to obtain but cannot maintain erection Good response to daily tadalafil Peyronie's disease Not interfering with intercourse [facility] Medical History History of kidney stones Benign prostatic hyperplasia with lower urinary tract symptoms Other obstructive and reflux uropathy Surgical History History of surgery Review of Systems Const All systems reviewed & are unremarkable except as noted in HPI and below Reports no additional complaints Eyes Reports no additional complaints ENT Reports no additional complaints Card Reports no additional complaints Resp Reports no additional complaints GI Reports no additional complaints Reports as per HPI Musc Reports no additional complaints Skin/Breast Reports system reviewed and no additional complaints, except as documented Neuro Reports no additional complaints Psych Reports no additional complaints Endo Reports no additional complaints Julius/Lymph Reports no additional complaints Aller/Immun Reports no additional complaints Office Procedures Cystoscopy Consent Discussed risk and benefit or proposed procedure with the patient. Information consent for procedure given to the patient. Discussed technical aspects, risks, benefits and alternatives in full. Addressed all of the patient's questions and concerns regarding the procedure. The patient demonstrated knowledge and understanding. They wish to proceed with this procedure. Preparation The patient was prepped in the usual manner. A pearl glue drier was present and in the room. Genitalia was prepped with betadine solution in a sterile manner. Lidocaine Jelly 2% was placed into the urethra and 16Fr flexible Olympus cystoscope was inserted into the meatus after adequate lubrication. Procedure Time out per protocol performed. The flexible cystoscope is passed transurethrally: The bladder was inspected in its entirety with utilization retroflexion displaying: Tumor(s): no suspicious bladder lesions visualized Trabeculation: Mild to Moderate Mucosal Erthema: NA Orifices: normal shape and position Urethra: normal Cystoscopy findings: prostatic urethra bilobar enlargement, mild prominence of median lobe, bulbous urethra WNL, no suspicious bladder lesions visualized [id number] DISPOSABLE SCOPE URO-G FLEXIBLE SCOPE Procedure code (CPT) selection complete Office Meds lidocaine HCl 2 % mucosal jelly in applicator Performing Provider: Abdirashid Lopez MD [facility]forming [facility] [place] [facility] Administered by: Nava Barba RN on 07/26/25 09:47 Dose Route Admin Location Dispensed Lot Number Expiration Date NDC [employer] 10 mL intra-urethral 20 mL ciprofloxacin HCl 500 mg tablet Performing Provider: Abdirashid Lopez MD Performing Location: [facility] [place] [facility] Administered by: Nava Barba RN on 07/26/25 09:47 Dose Route Admin Location Dispensed Lot Number Expiration Date NDC [employer] 500 mg PO 1 tab phenazopyridine 200 mg tablet Performing Provider: Abdirashid Lopez MD Performing Location: [facility] [place] [facility] Administered by: Nava Barba RN on 07/26/25 09:47 Dose Route Admin Location Dispensed Lot Number Expiration Date NDC [employer] 200 mg PO 1 tab Results AMB Urinalysis, Automated UA Leukoctes 0 Renea/uL Last Edit by RAHUL Narayanan on 07/26/25 09:34 UA Nitrite Negative Last Edit by RAHUL Narayanan on 07/26/25 09:34 UA Urobilinogen 3.5 mg/dL Last Edit by RAHUL Narayanan on 07/26/25 09:34 UA Protein 15 mg/dL Last Edit by RAHUL Narayanan on 07/26/25 09:34 UA pH 5.5 Last Edit by RAHUL Narayanan on 07/26/25 09:34 UA Blood 0 [place]/uL Last Edit by RAHUL Narayanan on 07/26/25 09:34 UA Specific [place] 1.020 Last Edit by RAHUL Narayanan on 07/26/25 09:34 UA Ketone Negative Last Edit by RAHUL Narayanan on 07/26/25 09:34 UA Bilirubin 0 mg/dL Last Edit by RAHUL Narayanan on 07/26/25 09:34 UA Glucose 0 mg/dL Last Edit by RAHUL Narayanan on 07/26/25 09:34 Results Reviewed Results Reviewed: Laboratory Last Values Urine pH (Auto) 5.5 07/26/25 09:33 Specific [place] (Auto) 1.020 07/26/25 09:33 Urine Protein (Auto) 15 mg/dL 07/26/25 09:33 Glucose (UA)(Auto) 0 mg/dL 07/26/25 09:33 Urine Ketones (Auto) Negative 07/26/25 09:33 Urine Blood (Auto) 0 [place]/uL 07/26/25 09:33 Urine Nitrite (Auto) Negative 07/26/25 09:33 Urine Bilirubin (Auto) 0 mg/dL 07/26/25 09:33 Urine Urobilinogen (Auto) 3.5 mg/dL 07/26/25 09:33 Leukocyte Esterase (Auto) 0 Reena/uL 07/26/25 09:33 Assessment & Plan Assessment & Plan (1) Benign prostatic hyperplasia with lower urinary tract symptoms: Code(s): N40.1 - Benign prostatic hyperplasia with lower urinary tract symptoms Category: Medical (2) Peyronie's disease: Code(s): N48.6 - Induration penis plastica Category: Medical (3) Erectile dysfunction: Code(s): N52.9 - Male erectile dysfunction, unspecified Category: Medical (4) Nephrolithiasis: Code(s): N20.0 - Calculus of kidney Category: Medical Plan proscar 5 mg daily, discussed green light laser. Orders: Orders AMB Urinalysis Automated 07/26/25 Z13.9 - Encounter for screening, unspecified AMB Cystoscopy 07/26/25 N40.1 - Benign prostatic hyperplasia with lower urinary tract symptoms Medications: New finasteride (Proscar) 5 mg PO DAILY 90 tabs 3RF N40.1 - Benign prostatic hyperplasia with lower urinary tract symptoms Patient Instructions: The patient had an opportunity to ask questions regarding treatment plan. The patient expressed understanding and agreement with the above treatment plan. The patient is aware they should contact our office by phone for worsening of their current condition or the appearance of new symptoms. Compliance is encouraged with any medications and followup testing that is ordered. It is a privilege to be allowed the opportunity to participate in the urologic care of your patient. If you have any questions or concerns regarding treatment for the above conditions please do not hesitate to contact me. The office telephone contact is [phone]. This note is constructed in part using voice recognition software. While every effort has been made to ensure accuracy awning hanger helper errors may have been included. Yours sincerely, Abdirashid Lopez MD Coding Level of Care Code Est Pt Level 4 (85068) Diagnoses Benign prostatic hyperplasia with lower urinary tract symptoms N40.1 Peyronie's disease N48.6 Erectile dysfunction N52.9 Nephrolithiasis N20.0 CPT Codes Cystoscopy - CPT: 43715-[id number] ([id number])
--- OUTSIDE RECORDS SUMMARY | 2025-07-26 10:01 | XMS_ITS | Clinical Summary ---
Author Organization [facility] [address] [place] [address] [place] [phone] Phone Care Team Providers Care Regenerator Operator Name Role Phone Yvonne Haider MD Primary [...] day if needed for erectile dysfunction. Active busPIRone (BUSPAR) 15 mg tablet Take 2 tablets (30 mg total) by mouth 2 (two) times a day. 360 each 1 5 Active atorvastatin (LIPITOR) 20 mg tablet TAKE ONE TABLET EVERY DAY 90 tablet 1 5 Active buPROPion XL (WELLBUTRIN XL) 300 mg 24 hr tablet Take 1 tablet (300 mg total) by mouth 1 (one) time each day in the morning. 90 tablet 5 Active venlafaxine XR (EFFEXOR-XR) 150 mg 24 hr capsule Take 1 capsule (150 mg total) by mouth 1 (one) time each day. 90 capsule 5 Active traZODone (DESYREL) 150 mg tablet TAKE ONE TABLET EVERY NIGHT AT BEDTIME 90 tablet 1 5 Active metoprolol succinate (TOPROL-XL) 100 mg 24 hr tablet Take 1 tablet (100 mg total) by mouth 1 (one) time each day. 90 tablet 1 5 Active traZODone (DESYREL) 150 mg tablet TAKE ONE TABLET EVERY NIGHT AT BEDTIME 90 tablet 1 5 025 Discontinued metoprolol succinate (TOPROL-XL) 100 mg 24 hr tablet Take 1 tablet (100 mg total) by mouth 1 (one) time each day. 90 each 1 5 025 Discontinued Hospital, Clinic, or Other Facility Administered Medication Ordered Dose Route Frequency Start Date End Date Status cyanocobalamin (VITAMIN B-12) injection 1,000 mcgIndications:B12 deficiency 1000 mcg IM See admin instructions 06/12/2025 Active Active Problems Problem Noted Date Diagnosed Date Prediabetes 11/08/2023 Assessment & Plan (06/10/2025 1:40 PM EDT): Recent A1c of 7.8, glucose of 200. A1c 6 months ago was 6. We discussed about pharmacologic management. Importance of diet and exercise. Recommended to make an appointment with the eye doctor. Patient will start lifestyle modifications and we will recheck A1c in 3 months. If A1c is still above 7 we will start treatment with metformin. Orders: Thyroid stimulating hormone; Future Hemoglobin A1c; Future CBC and differential; Future Vitamin B12; Future Assessment & Plan (01/14/2025 10:03 AM EST): Last A1C: 5.7. Well controlled on a diet. Will recheck in 3 months. Orders: Comprehensive metabolic panel; Future Lipid panel with reflex to direct LDL; Future Neck pain, chronic 12/25/2021 LYLE (generalized anxiety disorder) 05/26/2017 Assessment & Plan (06/10/2025 1:40 PM EDT): Depression and anxiety currently uder control, no symptoms exacerbation, patient with a regular level of performance, no SI, HI, on trazodone, venlafaxine, bupropion, buspirone. Will continue same regimen. Medications have been well-tolerated for many years. Orders: Thyroid stimulating hormone; Future Hemoglobin A1c; Future CBC and differential; Future Assessment & Plan (01/14/2025 10:03 AM EST): As above. Recurrent major depressive d isorder, in remission ([facility] V24) 05/26/2017 Assessment & Plan (01/14/2025 10:03 AM EST): Depressive/anxiety symptoms are well controlled. Continue Bupropion, buspirone, and venlafaxine. Weak urine stream 03/25/2015 Urticaria 08/21/2014 Overview (10/29/2024): Unclear etiology. Saw Dr. Pederson. Lisinopril d/fercho due to angioedema Eczema 08/12/2011 Essential hypertension, benign 08/12/2011 Assessment & Plan (06/10/2025 1:40 PM EDT): well controlled. Today 122/70. Currently on metoprolol. We will continue this medication. Encouraged to follow a low-salt diet and exercise regularly. Orders: Thyroid stimulating hormone; Future Hemoglobin A1c; Future CBC and differential; Future Assessment & Plan (01/14/2025 10:03 AM EST): [...] Encounters Date Type Department Care Team Description 07/10/2025 9:45 AM EDT Clinical Support Adult [address] [phone] B12 deficiency (Primary Dx) 06/10/2025 11:00 AM EDT Office Visit Adult Medicine [address] [phone] Yvonne Rivas MD Type 2 diabetes mellitus without complication, without long-term current use of insulin ([facility] V24, [facility] V28) (Primary Dx); Essential hypertension, benign; Mixed hyperlipidemia; LYLE (generalized anxiety disorder); Chronic fatigue; Need for vaccination against Streptococcus pneumoniae; Need for tetanus, diphtheria, and acellular pertussis (Tdap) vaccine from Last 3 Months Immunizations Name Administration Dates Next Due Influenza Quadravalent, MDCK , 0.5ml, preservative free (Flucelvax) 6mo and older 11/08/2023,10/26/2022,12/25/2021,2019,10/24/2019 Influenza trivalent, 0.5mL, preservative free (Fluarix; FluLaval; Fluzone) ages 6mo and older (Afluria) 3 years and older 08/05/2017,08/26/2016,08/18/2015,2012,12/11/2012,08/12/2011 Influenza, Unspecified 08/05/2017 Pneumococcal conjugate 20 va lent (Prevnar 20, PCV 20) 2mo and older 06/10/2025 Tdap Tetanus diptheria acell ular pertussis (Boostrix; Adacel) 7yo and older 06/10/2025,08/20/2014 Surgical History Surgery Date Site/Laterality Comments OTHER SURGICAL HISTORY 12/2009 PROCEDURE: MT COLECTOMY PARTIAL W/ANASTOMOSIS; COMMENT: Elective sigmoid colectomy for recurrent diverticulitis; Dr. Zuñiga, [facility] OTHER SURGICAL HISTORY PROCEDURE: HISTORY OTHER; [...] History Relation Name Comments CABG Father 1st CT at 32 Diabetes Father Other: carotid stenosis Father Other: thoracic aortic aneurysm Father Breast cancer Neg Hx Colon cancer Neg Hx Prostate cancer Neg Hx Relation Name Status Comments Father Mother Alive Social History Tobacco Use Types Packs/Day Years Used Date Smoking Tobacco: Never Smokeless Tobacco: Never Tobacco Cessation:Counseling Given: Not Answered Alcohol Use Standard Drinks/Week Comments No 0 [...] Sign Reading Time Taken Comments Blood Pressure 133/79 06/10/2025 10:37 AM EDT Pulse 58 06/10/2025 10:37 AM EDT Temperature 36.6 C (97.9 F) 06/10/2025 10:37 AM EDT Respiratory Rate 14 06/10/2025 10:37 AM EDT Oxygen Saturation - - Inhaled Oxygen Concentration - - Weight 102 kg (223 lb 12.8 oz) 05/29/2024 8:28 A M EDT Height 182.9 cm (6') 06/10/2025 10:37 AM EDT Body Mass Index 30.35 09/26/2023 8:37 AM EDT Plan of Treatment Upcoming Encounters Date Type Department Care Team (Late st Contact Info) Description 08/14/2025 1:30 PM EDT Clinical Support Adult Medicine [address] [phone] 12/11/2025 9:00 AM EST Office Visit Adult Medicine [address] [phone] Yvonne Haider MD [address] [place] [address] Health Maintenance Due Date Last Done Comments Diabetes: Annual Foot Exam 1970 Diabetes: Annual Retina Eye Exam 1970 HIV Screening 11/06/2022 Medicare Annual Wellness Visit 11/06/2022 COVID-19 Vaccine ( season) 2024 04/02/2021 Diabetes: Annual Urine Albumin-Creatinine Ratio (uACR) 06/03/2025 Influenza Vaccine (#1) 2025 , 10/26/2022, 12/25/2021, Additional history exists Diabetes: Blood Sugar Control Test (HGBA1C) 12/11/2025 06/10/2025, 08/20/2024, 08/20/2024, Additional history exists Social Influencers of Health Screening 01/07/2026 01/07/2025 Diabetes: Annual GFR (Glomerular Filtration Rate) 06/03/2026 06/03/2025, 05/28/2024, 05/28/2024 Hypertension/CHF/CAD Annual BMP Blood Test 06/03/2026 06/03/2025, 05/28/2024, 05/28/2024 Cholesterol Screening (Lipid Panel) 06/03/2030 06/03/2025, 05/28/2024, 05/28/2024 Colorectal Cancer Screening: Colonoscopy 05/10/2032 05/10/2022 DTaP,Tdap,and Td Vaccines (3 - Td or Tdap) 06/10/2035 06/10/2025, 08/20/2014 RSV Immunization Adult Patients (1 - 1-dose 75+ series) 2035 Hepatitis C Screening Completed 05/21/2013 Zoster Vaccines Completed 08/02/2024, 05/29/2024 Depression Screening Completed 01/07/2025, 08/01/20 Pneumococcal Vaccine: 50+ Years Completed 06/10/2025 HIB Vaccines Aged Out No longer eligi [...] Procedure Name Priority Date/Time Associated Diagnosis Comments CBC WITH AUTO DIFFERENTIAL Routine 06/10/2025 11:51 AM EDT Type 2 diabetes mellitus without complication, without long-term current use of insulin ([facility] V24, [facility] V28) Essential hypertension, benign Mixed hyperlipidemia LYLE (generalized anxiety disorder) THYROID STIMULATING HORMONE Routine 06/10/2025 11:51 AM EDT Type 2 diabetes mellitus without complication, without long-term current use of insulin ([facility] V24, [facility] V28) Essential hypertension, benign Mixed hyperlipidemia LYLE (generalized anxiety disorder) HEMOGLOBIN A1C Routine 06/10/2025 11:51 AM EDT Type 2 diabetes mellitus without complication, without long-term current use of insulin ([facility] V24, [facility] V28) Essential hypertension, benign Mixed hyperlipidemia LYLE (generalized anxiety disorder) CBC AND DIFFERENTIAL Routine 06/10/2025 11:51 AM EDT Type 2 diabetes mellitus without complication, without long-term current use of insulin ([facility] V24, [facility] V28) Essential hypertension, benign Mixed hyperlipidemia LYLE (generalized anxiety disorder) VITAMIN B12 Routine 06/10/2025 11:51 AM EDT Type 2 diabetes mellitus without complication, without long-term current use of insulin ([facility] V24, [facility] V28) COMPREHENSIVE METABOLIC PANEL Routine 06/03/2025 8:29 AM EDT Type 2 diabetes mellitus without complication, without long-term current use of insulin ([facility] V24, [facility] V28) Essential hypertension, benign LIPID PANEL WITH REFLEX TO DIRECT LDL Routine 06/03/2025 8:29 AM EDT Type 2 diabetes mellitus without complication, without long-term current use of insulin (CMS/HCC V24, CMS/HCC V28) Essential hypertension, benign DEPRESSION SCREENING Routine 08/01/2024 COLONOSCOPY Routine 05/10/2022 HEPATITIS C SCREENING Routine 05/21/2013 from Last 3 Months or Most Recently Relevant to Health Maintenance Results * (ABNORMAL) CBC auto differential (06/10/2025 11:51 AM EDT) [facility] WBC 7.8 4.8 - 10.8 K/mcL LAB HEMETOLOGY METHOD 06/10/2025 2:10 PM EDT [facility] RBC 5.60(H) 4.50 - 5.50 M/mcL LAB HEMETOLOGY METHOD 06/10/2025 2:10 PM EDT [facility] Hemoglobin 16.9 13.5 - 17.5 g/dL LAB HEMETOLOGY METHOD 06/10/2025 2:10 PM EDT [facility] Hematocrit 51.3 42.0 - 54.0 % LAB HEMETOLOGY METHOD 06/10/2025 2:10 PM EDT [facility] MCV 91.6 79.0 - 98.0 FL LAB HEMETOLOGY METHOD 06/10/2025 2:10 PM EDT [facility] MCH 30.2 27.0 - 32.0 pcg LAB HEMETOLOGY METHOD 06/10/2025 2:10 PM EDT [facility] MCHC 32.9 32.0 - 37.0 g/dL LAB HEMETOLOGY METHOD 06/10[facility]2025 [facility] RDW 13.6 11.0 - 15.0 % LAB HEMETOLOGY METHOD 06/10/2025 [facility] Platelets 188 130 - 400 K/mcL LAB HEMETOLOGY METHOD 06/10/2025 2:10 PM EDT [facility] MPV 9.7 7.0 - 11.0 FL LAB HEMETOLOGY METHOD 06/10/2025 2:10 PM EDT [facility] NRBC 0.0 <1.0 % LAB HEMETOLOGY METHOD 06/10/2025 2:10 PM EDT [facility] NRBC Absolute 0.00 <0.10 K/mcL LAB HEMETOLOGY METHOD 06/10/2025 2:10 PM EDT [facility] Neutrophils Relative 58.3 % LAB HEMETOLOGY METHOD 06/10/2025 2:10 PM EDT [facility] Lymphocytes Relative 29.1 % LAB HEMETOLOGY METHOD 06/10/2025 2:10 PM EDT [facility] Monocytes Relative 7.8 % LAB HEMETOLOGY METHOD 06/10/2025 2:10 PM EDT [facility] Eosinophils Relative 3.9 % LAB HEMETOLOGY METHOD 06/10/2025 2:10 PM EDT [facility] Basophils Relative 0.6 % LAB HEMETOLOGY METHOD 06/10/2025 [facility] Immature Granulocytes Relative 0.3 % LAB HEMETOLOGY METHOD 06/10/2025 2:10 PM EDT [facility] Neutrophils Absolute 4.54 1.50 - 7.00 K/mcL LAB HEMETOLOGY METHOD 06/10/2025 2:10 PM EDT [facility] Lymphocytes Absolute 2.27 1.00 - 5.00 K/mcL LAB HEMETOLOGY METHOD 06/10/2025 2:10 PM EDT [facility] Monocytes Absolute 0.61 0.20 - 1.00 K/mcL LAB HEMETOLOGY METHOD 06/10/2025 2:10 PM EDT [facility] Eosinophils Absolute 0.30 0.00 - 0.50 K/mcL LAB HEMETOLOGY METHOD 06/10/2025 2:10 PM EDT [facility] Basophils Absolute 0.05 0.00 - 0.20 K/[facility] LAB HEMETOLOGY METHOD 06/10/2025 2:10 PM EDT [facility] Immature Granulocytes Absolute 0.02 0.00 - 0.03 K/[facility] LAB HEMETOLOGY METHOD 06/10/2025 2:10 PM EDT [facility] Blood Venous blood specimen / Unknown Venipuncture / Unknown 06/10/2025 11:51 AM EDT 06/10/2025 11:51 AM EDT Yvonne Haider MD LAB BLOOD ORDERABL ES Final Result Performing Organization Address City/[facility]/ZIP Co de Phone Number [facility] [address] [place] [address], [place] [phone] * Thyroid stimulating hormone (06/10/2025 11:51 AM EDT) TSH 1.62 0.40 - 4.00 mcIU/mL LAB CHEMISTRY METHOD 06/10/2025 4:50 PM EDT [facility] Blood Venous blood specimen / Unknown Venipuncture / Unknown 06/10/2025 11:51 AM EDT 06/10/2025 11:51 AM EDT Yvonne Haider MD LAB BLOOD ORDERABL ES Final Result [facility] [address] [place] [address], [place] [phone] * Hemoglobin A1c (06/10/2025 11:51 AM EDT) Hemoglobin A1C 5.6 <6.5 % LAB CHEMISTRY METHOD 06/10/2025 3:28 PM EDT [facility] Mean Bld Glu Estim. 114 mg/dL LAB CHEMISTRY METHOD 06/10/2025 3:28 PM EDT [facility] Blood Venous blood specimen / Unknown Venipuncture / Unknown 06/10/2025 11:51 AM EDT 06/10/2025 11:51 AM EDT Yvonne Haider MD LAB BLOOD ORDERABL ES Final Result Performing Organization Address [facility]/ZIP Co de Phone Number [facility] [address] [place] [address], [place] [phone] * (ABNORMAL) Vitamin B12 (06/10/2025 11:51 AM EDT) [facility] Vitamin B-12 119(L) 250 - 900 pcg/mL LAB CHEMISTRY METHOD 06/10/2025 5:06 PM EDT [facility] Blood Venous blood specimen / Unknown Venipuncture / Unknown 06/10/2025 11:51 AM EDT 06/10/2025 11:51 AM EDT Yvonne Haider MD LAB BLOOD ORDERABL ES Final Result Performing Organization Address [facility] Co de Phone Number [facility] [address] [place] [address], [place] [phone] * Lipid panel with reflex to direct LDL (06/03/2025 8:29 AM EDT) [facility] Cholesterol 126 0 - 200 mg/dL LAB CHEMISTRY METHOD 06/03/2025 12:48 PM EDT [facility] Triglycerides 93 0 - 150 mg/dL LAB CHEMISTRY METHOD 06/03/2025 12:48 PM EDT [facility] HDL 45 >=40 mg/dL LAB CHEMISTRY METHOD 06/03/2025 12:48 PM EDT [facility] LDL Calculated 62 0 - 100 mg/dL LAB CHEMISTRY METHOD 06/03/2025 12:48 PM EDT [facility] VLDL Cholesterol Kendrick 18.6 mg/dL LAB CHEMISTRY METHOD 06/03/2025 12:48 PM T [facility] Non HDL Chol. (LDL+VLDL) 81 <145 mg/dL LAB CHEMISTRY METHOD 06/03/2025 12:48 PM [facility] Chol/HDL Ratio 2.8 0.0 - 4.4 LAB CHEMISTRY METHOD 06/03/2025 12:48 PM T [facility] Blood Venous blood specimen / Unknown Venipuncture / Unknown 06/03/2025 8:29 AM EDT 06/03/2025 8:29 AM EDT us Yvonne Haider MD LAB BLOOD ORDERABL ES Final Result [facility] [address] [place] [address], * (ABNORMAL) Comprehensive metabolic panel (06/03/2025 8:29 AM EDT) Sodium 139 133 - 145 mmol/L LAB CHEMISTRY METHOD 06/03/2025 12:48 PM [facility] Potassium 4.1 3.5 - 5.5 mmol/L LAB CHEMISTRY METHOD 06/03/2025 12:48 PM [facility] Chloride 105 96 - 110 mmol/L LAB CHEMISTRY METHOD 06/03/2025 12:48 PM [facility] CO2 31 21 - 32 mmol/L LAB CHEMISTRY METHOD 06/03/2025 12:48 PM [facility] Anion Gap 3 3 - 11 LAB CHEMISTRY METHOD 06/03/2025 12:48 PM [facility] Glucose 120(H) 70 - 100 mg/dL LAB CHEMISTRY METHOD 06/03/2025 12:48 PM [facility] BUN 22 5 - 25 mg/dL LAB CHEMISTRY METHOD 06/03/2025 12:48 PM [facility] Creatinine 1.15 0.70 - 1.30 mg/dL LAB CHEMISTRY METHOD 06/03/2025 12:48 PM [facility] eGFR 71 >=60 mL/min/1. 73m2 LAB CHEMISTRY METHOD 06/03/2025 12:48 PM [facility] Comment:Calculation based on the Chronic Kidney Disease Epidemiology Collaboration (CKD-EPI) equation refit without adjustment for race. BUN/Creatinine Ratio 19.1 LAB CHEMISTRY METHOD 06/03/2025 12:48 PM [facility] Calcium 9.1 8.5 - 10.5 mg/dL LAB CHEMISTRY METHOD 06/03/2025 12:48 PM [facility] AST (SGOT) 17 10 - 42 unit/L LAB CHEMISTRY METHOD 06/03/2025 12:48 PM [facility] ALT (SGPT) 28 10 - 60 unit/L LAB CHEMISTRY METHOD 06/03/2025 12:48 PM [facility] Alkaline Phosphatase 74 42 - 121 unit/L LAB CHEMISTRY METHOD 06/03/2025 12:48 PM [facility] Total Protein 7.1 6.0 - 8.0 g/dL LAB CHEMISTRY METHOD 06/03/2025 12:48 PM [facility] Albumin 4.1 3.2 - 5.0 g/dL LAB CHEMISTRY METHOD 06/03/2025 12:48 PM [facility] Total Bilirubin 0.5 0.0 - 1.4 mg/dL LAB CHEMISTRY METHOD 06/03/2025 12:48 PM [facility] Blood Venous blood specimen / Unknown Venipuncture / Unknown 06/03/2025 8:29 AM EDT 06/03/2025 8:29 AM EDT us Yvonne Haider MD LAB BLOOD ORDERABL ES Final Result [facility] ([facility] [address] [place] [address], [place] [phone] * Depression Screening (08/01/2024) Pathologist [facility] Depression Screening Abstracted Historical Provider HEALTH MAINTENANCE Final Result * Colonoscopy (05/10/2022) Pathologist [facility] Colonoscopy No Interpretation , Abstracted Anatomical Region Laterality Modality Other Historical Provider HEALTH MAINTENANCE Final Result * Hepatitis C Screening (05/21/2013) [facility] Hepatitis C Screening Abstracted Historical Provider HEALTH MAINTENANCE Final Result from Last 3 Months or Most Recently Relevant to Health Maintenance Insurance MEDICARE [place]ICAID [place] [employer] Care Teams Regenerator Operator Relationship Specialty Start Date End Date Yvonne Haider MD [address] [place] [address] PCP - General Internal Medicine 07/23/22
== END 2025-07-26 10:36 | disposition home or self-care (01) ==
LOC: HO.HUSH 09:12
PROVIDERS: PCP Internal Medicine; Visit Provider Urology
DX: N40.1 Benign prostatic hyperplasia with lower urinary tract symptoms (principal); N48.6 Induration penis plastica; N52.9 Male erectile dysfunction, unspecified; N20.0 Calculus of kidney
CPT/HCPCS: 52000; 99214

== ENCOUNTER → 2025-07-26 09:11 | Outpatient (BNVA) | payer MEDICARE, MEDICAID, SELFPAY | PROVIDERS: PCP Internal Medicine; Visit Provider Urology | DX: N40.1 Benign prostatic hyperplasia with lower urinary tract symptoms (principal); R33.9 Retention of urine, unspecified; N48.6 Induration penis plastica; N52.9 Male erectile dysfunction, unspecified; N32.89 Other specified disorders of bladder; Z13.9 Encounter for screening, unspecified | CPT/HCPCS: 52000; 81003; 99212 ==

== ENCOUNTER 2025-10-17 10:08 | Emergency (ER) | payer MEDICARE, MEDICAID, SELFPAY ==
--- NOTE | ~2025-10-17 | XR_ITS ---
EXAMINATION: XR FOOT, LEFT CLINICAL INFORMATION: foot pain. truama. fracture? COMPARISON: None available. TECHNIQUE: AP, lateral, and oblique views of the left foot. FINDINGS: Small marginal osteophytes are present along the lateral aspect of the first metatarsophalangeal joint. Otherwise, joint spaces are preserved without osteophytes or erosions. There is no joint diastases or malalignment. No fracture is identified. Small enthesophytes are present on calcaneus at Achilles tendon and plantar fascial attachments. 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 Small nonspecific calcaneal spurs. Electronically signed by: Ga Dang MD 10/17/2025 10:57 AM [facility]
[2025-10-17 10:13] VITALS: BP 164/78; PULSE 73; RESP 18; TEMP 36.1; O2SAT 97; BMI 26.5
--- NOTE | 2025-10-17 10:17 | ED.GENADULT ---
HPI - General Adult General Chief complaint: Wound/Laceration Stated complaint: Injury Time Seen by Provider: 10/17/25 10:54 Source: patient and RN notes reviewed Mode of arrival: ambulatory Limitations: no limitations History of Present Illness ED Provider: Brooklyn Nielsen PA-C HPI narrative: This is a 65-year-old male who presents emergency department with concerns of laceration to the top of his left foot. Patient states that a steel beam fell onto his foot in ultimately lacerated his foot. He is unsure when his last tetanus was. Denies taking any medications prior to arrival. No history of diabetes. No other complaints or concerns at this time. MD complaint: Laceration Onset (ago): hour(s) Relieving factors: none Exacerbating factors: none Associated symptoms: denies other symptoms Treatments prior to arrival: none Related Data Home Medications ?Medication ?Instructions ?Recorded ?Confirmed bupropion HCl 300 mg 24 hr tablet, mg PO 02/03/22 07/26/25 extended release buspirone 15 mg tablet mg PO 02/03/22 07/26/25 trazodone 150 mg tablet mg PO 02/03/22 07/26/25 venlafaxine 150 mg mg PO 02/03/22 07/26/25 capsule,extended release 24 hr metoprolol succinate 100 mg mg PO 11/19/22 07/26/25 tablet,extended release 24 hr Previous Rx's ?Medication ?Instructions ?Recorded tadalafil 5 mg tablet 5 mg PO DAILY sexual activity 90 04/26/25 days #90 tabs finasteride 5 mg tablet (Proscar) 5 mg PO DAILY #90 tabs 07/26/25 Allergies Allergy/AdvReac Type Severity Reaction Status Date / Time No Known Allergies (No Known Allergy Verified 10/21/25 09:16 Allergies*) Review of Systems Review of Systems: Constitutional : No Fever, No Chills ENT/Mouth : No sore throat, No Rhinorrhea Eyes: No Eye Pain, No Swelling, No Redness Cardiovascular : No Chest Pain, No SOB Respiratory : No Cough, No Sputum Gastrointestinal : No Nausea, No Vomiting, No Diarrhea, No abdominal Pain Genitourinary : No Dysuria, No Hematuria Musculoskeletal : No joint pain, No Myalgias, No Joint Swelling Skin : No Skin Lesions Neuro : No Weakness, No Numbness, No Headache All other systems reviewed and are negative Yes all other systems are reviewed and are negative Constitutional: Constitutional: Reports as per [facility] Past Medical History Medical History History of kidney stones Benign prostatic hyperplasia with lower urinary tract symptoms Other obstructive and reflux uropathy Surgical History History of surgery Physical Exam ED Exam Exam: General: Awake, alert, and oriented X3. No acute distress. HEENT: Normal inspection CVS: Normal heart rate and rhythm. Pulses normal. Respiratory: No respiratory distress Skin: Warm, dry, no rashes noted to exposed skin. Normal skin color. Normal skin turgor. Extremities: Left foot dorsal aspect there is a 3 centimeter partial-thickness laceration, linear, no active bleeding. Strong DP pulse. Sensation intact. Neuro: Oriented X 3. No motor deficit. No sensory deficit. Vital Signs: Vital Signs - 24 hr 10/17/25 10:13 Temperature 97.0 F Pulse Rate 73 Respiratory Rate 18 Blood Pressure 164/78 H Pulse Oximetry 97 Oxygen Delivery Method Room Air BMI result Body Mass Index 26.5 Course Course Course Narrative: RME; 65 yold male presents to the ED for steel beam fell on his foot and has now las laceration. patient unknown last tdap. xray and tdap ordere. Medications Administered Discontinued Medications Generic Name Dose Route Start Last Admin Trade Name Freq PRN Reason Stop Dose Admin Bacitracin 1 appl 10/17/25 12:48 10/17/25 12:57 Bacitracin Oint 0.9 Gm Packet TOPICAL 10/17/25 12:49 1 appl ONCE ONE Administration Protocol Diphtheria/Tetanus/Acell Pertussis 0.5 ml 10/17/25 10:16 10/17/25 10:40 Diphth,Pertus(Acell),Tet Adult 0.5 Ml Syringe IM 10/17/25 10:17 0.5 ml .ONCE ONE Administration Lidocaine HCl 5 ml 10/17/25 11:47 10/17/25 12:57 Lidocaine Hcl 1 % 20 Ml Vial INFILTRATI 10/17/25 11:48 5 ml ONCE ONE Administration Procedures Laceration Laceration 1: Site: lower extremity Side (If applicable): left Size (cm): 3 Description: linear Depth: simple, single layer Local Anesthetic: lidocaine 1% Amount of anesthesia used (mL): 4 Pre-repair: wound explored, irrigated extensively and deep structures intact Skin layer closed with: nylon Size (cm): 4-0 Number of sutures: 6 Technique: simple, interrupted Medical Decision Making Medical Decision Making MDM Narrative: This is a 65-year-old male who presents emergency department with concerns of laceration to the top of his left foot. While he was at home a piece of a wash your fell onto his left foot. This ultimately caused a laceration. X-ray was obtained to rule out any fracture. There is mild osteoarthritis as well as calcaneal spurs, no acute findings. Wound was closed using 6 sutures. Patient tolerated procedure well. See procedure note for details. Given wound care instructions. Given strict return precautions, patient understands and agrees with plan. Updated Tdap. Patient stable for discharge Differential Diagnosis Differential Diagnoses: The differential diagnosis associated with the presentation includes Laceration, contusion, fracture, foreign body Radiology Impression Discussion of test interpretation with radiology: I have reviewed the radiologist's reading. Radiologist Impression: FINDINGS: Small marginal osteophytes are present along the lateral aspect of the first metatarsophalangeal joint. Otherwise, joint spaces are preserved without osteophytes or erosions. There is no joint diastases or malalignment. No fracture is identified. Small enthesophytes are present on calcaneus at Achilles tendon and plantar fascial attachments. 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 Small nonspecific calcaneal spurs. Electronically signed by: Ga Dang MD 10/17/2025 10:57 AM [facility] Dictated By: Ga Dang MD Signed By: <Electronically signed by Discharge Plan Discharge Clinical Impression: Laceration of foot Patient Disposition: Home, Self-Care Instructions: Care For Your Stitches (ED), Laceration (ED) Additional Instructions: You were seen in the emergency department after accidentally lacerating your left foot. Your x-ray did not show any broken bones. You do have arthritis seen in your foot. You also have some calcaneal spurs. We had placed 6 sutures in your left foot. Please have your sutures removed in 8-10 days. Please keep sutures clean and dry. Do not submerge wound. If wound gets wet, pat dry. You may rinse with a mild soap and water. Watch for any signs of infection including but not limited to increased redness, swelling, fevers or chills. If any of these occur, please seek emergent care. Prescriptions: No Action bupropion HCl 300 mg tablet extended release 24 hr PO trazodone 150 mg tablet PO venlafaxine 150 mg capsule,extended release 24hr PO buspirone 15 mg tablet PO metoprolol succinate 100 mg tablet extended release 24 hr PO tadalafil 5 mg tablet 5 mg PO DAILY 90 Days Qty: 90 3RF finasteride [Proscar] 5 mg tablet 5 mg PO DAILY Qty: 90 3RF Interventions: ED Discharge Assessment Last Done: 10/17/25 13:04 Discharge Date/Time: 10/17/25 13:05 Print Language: Cymraes
[2025-10-17] MEDS: Diphth,Pertus(ACell),Tet Adult 0.5 ML SYRINGE IM (10:40)
[2025-10-17 12:57] VITALS: BP 124/66; PULSE 64; RESP 16; TEMP 36.3; O2SAT 95
[2025-10-17] MEDS: Lidocaine HCl 1 % 20 ML VIAL 5 ML INFILTRATI (12:57)
[2025-10-17 13:04] VITALS: BP 124/66; PULSE 64; RESP 16; TEMP 36.3; O2SAT 95
--- OUTSIDE RECORDS SUMMARY | 2025-10-17 16:20 | XMS_ITS | Clinical Summary ---
Author Organization [facility] [address] [facility] Address [address] [place] [phone] Phone Care Team Providers Care Process Designer Name Role Phone Yvonne Haider MD Primary [...] each day. 90 tablet 1 5 Active busPIRone (BUSPAR) 15 mg tablet TAKE TWO TABLETS TWICE DAILY 360 tablet 1 5 Active venlafaxine XR (EFFEXOR-XR) 150 mg 24 hr capsule TAKE ONE CAPSULE ONCE DAILY 90 capsule 5 Active buPROPion XL (WELLBUTRIN XL) 300 mg 24 hr tablet TAKE ONE TABLET ONCE DAILY IN THE MORNING 90 tablet Active atorvastatin (LIPITOR) 20 mg tablet TAKE ONE TABLET BY MOUTH ONCE DAILY 90 tablet 5 Active atorvastatin (LIPITOR) 20 mg tablet TAKE ONE TABLET EVERY DAY 90 tablet 1 5 025 Discontinued buPROPion XL (WELLBUTRIN XL) 300 mg 24 hr tablet Take 1 tablet (300 mg total) by mouth 1 (one) time each day in the morning. 90 tablet 5 025 Discontinued venlafaxine XR (EFFEXOR-XR) 150 mg 24 hr capsule Take 1 capsule (150 mg total) by mouth 1 (one) time each day. 90 capsule 5 025 Discontinued Hospital, Clinic, or Other [...] Recurrent major depressive d isorder, in remission ([facility] V24) 05/26/2017 Assessment & Plan (01/14/2025 [...] Right knee usually Hearing loss 08/12/2011 Immunizations Immunization Administration Dates Next Due Influenza Quadravalent, MDCK [...] Site/Laterality Comments OTHER SURGICAL HISTORY 12/2009 PROCEDURE: PA COLECTOMY PARTIAL W/ANASTOMOSIS; COMMENT: Elective sigmoid colectomy for recurrent diverticulitis; Dr. Zuñiga, [facility] OTHER SURGICAL HISTORY PROCEDURE: HISTORY OTHER; [...] History Relation Name Comments CABG Father 1st [place] at 32 Diabetes Father Other: carotid stenosis [...] care for your loved ones. For example, child welfare manager or elderly care for an older adult? [...] Date Recorded What is your living situation? Unrecognized valu e 01/07/2025 Sex and Gender Information Value Date [...] Care Team (Late st Contact Info) Description 12/11/2025 9:00 AM EST Office Visit Adult Medicine [address] [phone] Yvonne Haider MD [address] [place] [phone] Health Maintenance Due Date Last Done Comments Medicare Annual Wellness Visit 11/06/2022 COVID-19 Vaccine ( season) 2025 04/02/2021 Influenza Vaccine (#1) 2025 , 10/26/2022, 12/25/2021, Additional history exists Falls Risk Assessment 2025 Social Influencers of Health Screening 01/07/2026 01/07/2025 Hypertension/CHF/CAD Annual BMP Blood Test 06/03/2026 06/03/2025, [...] Procedure Name Priority Date/Time Associated Diagnosis Comments COMPREHENSIVE METABOLIC PANEL Routine 06/03/2025 8:29 AM EDT Type 2 diabetes mellitus without complication, without long-term current use of insulin ([facility]/HCC V24, [facility] V28) Essential hypertension, benign LIPID PANEL WITH REFLEX TO DIRECT LDL Routine 06/03/2025 8:29 AM EDT Type 2 diabetes mellitus without complication, without long-term current use of insulin ([facility]/HCC V24, [facility] V28) Essential hypertension, benign DEPRESSION SCREENING Routine 08/01/2024 COLONOSCOPY Routine 05/10/2022 HEPATITIS C SCREENING Routine 05/21/2013 from Last 3 Months or Most Recently Relevant to Health Maintenance Results * Lipid panel with reflex to direct LDL (06/03/2025 8:29 AM EDT) [facility] Cholesterol 126 0 - 200 mg/dL LAB CHEMISTRY METHOD 06/03/2025 12:[address] [facility] Triglycerides 93 0 - 150 mg/dL LAB CHEMISTRY METHOD 06/03/2025 12:[address] [facility] HDL 45 >=40 mg/dL LAB CHEMISTRY METHOD 06/03/2025 12:[address] [facility] LDL Calculated 62 0 - 100 mg/dL LAB CHEMISTRY METHOD 06/03/2025 12:[address] [facility] VLDL Cholesterol Kendrick 18.6 mg/dL LAB CHEMISTRY METHOD 06/03/2025 12:[address] [facility] Non HDL Chol. (LDL+VLDL) 81 <145 mg/dL LAB CHEMISTRY METHOD 06/03/2025 12:[address] [facility] Chol/HDL Ratio 2.8 0.0 - 4.4 LAB CHEMISTRY METHOD 06/03/2025 12:[address] [facility] Blood Venous blood specimen / Unknown Venipuncture / Unknown 06/03/2025 8:29 AM EDT 06/03/2025 8:29 AM EDT us Yvonne Haider MD LAB BLOOD ORDERABL ES Final Result [facility] [address] [place] [address], * (ABNORMAL) Comprehensive metabolic panel (06/03/2025 8:29 AM EDT) Sodium 139 133 - 145 mmol/L LAB CHEMISTRY METHOD 06/03/2025 12:[address] [facility] Potassium 4.1 3.5 - 5.5 mmol/L LAB CHEMISTRY METHOD 06/03/2025 12:[address] [facility] Chloride 105 96 - 110 mmol/L LAB CHEMISTRY METHOD 06/03/2025 12:[address] [facility] CO2 31 21 - 32 mmol/L LAB CHEMISTRY METHOD 06/03/2025 12:48 PM [facility] Anion Gap 3 3 - 11 LAB CHEMISTRY METHOD 06/03/2025 12:48 PM [facility] Glucose 120(H) 70 - 100 mg/dL LAB CHEMISTRY METHOD 06/03/2025 12:48 PM [facility] BUN 22 5 - 25 mg/dL LAB CHEMISTRY METHOD 06/03/2025 12:48 PM [facility] Creatinine 1.15 0.70 - 1.30 mg/dL LAB CHEMISTRY METHOD 06/03/2025 12:48 PM [facility] eGFR 71 >=60 mL/min/1. 73m2 LAB CHEMISTRY METHOD 06/03/2025 12:48 PM [facility] Comment:Calculation based on the Chronic Kidney Disease Epidemiology Collaboration (CKD-EPI) equation refit without adjustment for race. BUN/Creatinine Ratio 19.1 LAB CHEMISTRY METHOD 06/03/2025 12:48 PM [facility] Calcium 9.1 8.5 - 10.5 mg/dL LAB CHEMISTRY METHOD 06/03/2025 12:48 PM [facility] AST (SGOT) 17 10 - 42 unit/L LAB CHEMISTRY METHOD 06/03/2025 12:48 PM [facility] ALT (SGPT) 28 10 - 60 unit/L LAB CHEMISTRY METHOD 06/03/2025 12:48 PM [facility] Alkaline Phosphatase 74 42 - 121 unit/L LAB CHEMISTRY METHOD 06/03/2025 12:48 PM [facility] Total Protein 7.1 6.0 - 8.0 g/dL LAB CHEMISTRY METHOD 06/03/2025 12:48 PM [facility] Albumin 4.1 3.2 - 5.0 g/dL LAB CHEMISTRY METHOD 06/03/2025 12:48 PM [facility] Total Bilirubin 0.5 0.0 - 1.4 mg/dL LAB CHEMISTRY METHOD 06/03/2025 12:[address] [facility] Blood Venous blood specimen / Unknown Venipuncture / Unknown 06/03/2025 8:29 AM EDT 06/03/2025 8:29 AM EDT Yvonne Haider MD LAB BLOOD ORDERABL ES Final Result [facility] [address] [place] [address], [place] [phone] * Depression Screening (08/01/2024) Pathologist [facility] Depression Screening Abstracted Historical Provider HEALTH MAINTENANCE Final Result * Colonoscopy (05/10/2022) [facility] Colonoscopy No Interpretation , Abstracted Anatomical Region Laterality Modality Other Historical Provider HEALTH MAINTENANCE Final Result * Hepatitis C Screening (05/21/2013) [facility] Hepatitis C Screening Abstracted Historical Provider HEALTH MAINTENANCE Final Result from Last 3 Months or Most Recently Relevant to Health Maintenance Insurance MEDICARE MEDICAID [place] Care Teams Process Designer Relationship Specialty Start Date End Date Yvonne Haider MD [address] [place] [phone] PCP - General Internal Medicine 07/23/22
== END 2025-10-17 13:05 | disposition home or self-care (01) ==
PROVIDERS: Emergency Provider Emergency Medicine; PCP Internal Medicine
DX: S91.312A Laceration without foreign body, left foot, initial encounter (principal); W45.8XXA Other foreign body or object entering through skin, initial encounter; W22.8XXA Striking against or struck by other objects, initial encounter; Y93.89 Activity, other specified; Y92.9 Unspecified place or not applicable; Y99.9 Unspecified external cause status; M79.672 Pain in left foot
CPT/HCPCS: 12002; 73620; 90471; 90715; 99282; 99284; J2003

== ENCOUNTER → 2025-10-17 10:16 | Outpatient (BNV) | payer MEDICARE, MEDICAID, SELFPAY | PROVIDERS: Emergency Provider Emergency Medicine; PCP Internal Medicine; Visit Provider Radiology Diagnostic Radiology | DX: M19.072 Primary osteoarthritis, left ankle and foot (principal) | CPT/HCPCS: 73620 ==

== ENCOUNTER 2025-10-21 08:19 | Outpatient (AMB) | payer MEDICARE, MEDICAID, SELFPAY ==
--- OUTSIDE RECORDS SUMMARY | 2025-10-21 08:28 | XMS_ITS | Clinical Summary ---
Author Organization [facility] [address] [facility] Address [address] [place] [phone] Phone Care Team Providers Care Quality Control Tester Name Role Phone Yvonne Haider MD Primary [...] ONCE DAILY IN THE MORNING 90 tablet 5 Active atorvastatin (LIPITOR) 20 mg tablet TAKE ONE TABLET BY MOUTH ONCE DAILY 90 tablet 5 Active atorvastatin (LIPITOR) 20 mg tablet TAKE ONE TABLET EVERY DAY 90 tablet 1 5 025 Discontinued Hospital, Clinic, or [...] Recurrent major depressive d isorder, in remission ([facility] V24) 05/26/2017 Assessment & Plan (01/14/2025 10:03 [...] Site/Laterality Comments OTHER SURGICAL HISTORY 12/2009 PROCEDURE: DE COLECTOMY PARTIAL W/ANASTOMOSIS; COMMENT: Elective sigmoid colectomy for recurrent diverticulitis; Dr. Zuñiga, [facility] OTHER SURGICAL HISTORY PROCEDURE: HISTORY [...] History Relation Name Comments CABG Father 1st [place] at 32 Diabetes Father Other: carotid stenosis [...] for your loved ones. For example, child development assistant or elderly care for an older adult? [...] 9:00 AM EST Office Visit Adult Medicine [facility] [address] [place], [place] [phone] Yvonne Haider MD [address] [place] [address] Health Maintenance Due Date Last Done Comments [...] complication, without long-term current use of insulin ([facility] V24, [facility] V28) Essential hypertension, benign LIPID PANEL WITH REFLEX TO DIRECT LDL Routine 06/03/2025 8:29 AM EDT Type 2 diabetes mellitus without complication, without long-term current use of insulin ([facility] V24, [facility] V28) Essential hypertension, benign DEPRESSION SCREENING Routine 08/01/2024 COLONOSCOPY Routine 05/10/2022 HEPATITIS C SCREENING Routine 05/21/2013 from Last 3 Months or Most Recently Relevant to Health Maintenance Results * Lipid panel with reflex to direct LDL (06/03/2025 8:29 AM EDT) Cholesterol 126 0 - 200 mg/dL LAB [...] LAB CHEMISTRY METHOD 06/03/2025 12:[address] [facility] Non HDL Chol. (LDL+VLDL) 81 <145 mg/dL LAB CHEMISTRY METHOD 06/03/2025 12:48 PM [facility] Chol/HDL Ratio 2.8 0.0 - 4.4 LAB CHEMISTRY METHOD 06/03/2025 12:[address] [facility] Blood Venous blood specimen / Unknown Venipuncture / Unknown 06/03/2025 8:29 AM EDT 06/03/2025 8:29 AM EDT us Yvonne Haider MD LAB BLOOD ORDERABL ES Final Result [facility] [address] [place] [address], * (ABNORMAL) Comprehensive metabolic panel (06/03/2025 8:29 AM EDT) Sodium 139 133 - 145 mmol/L LAB CHEMISTRY METHOD 06/03/2025 12:48 PM [facility] Potassium 4.1 3.5 - 5.5 mmol/L LAB CHEMISTRY METHOD 06/03/2025 12:48 PM [facility] Chloride 105 96 - 110 mmol/L LAB CHEMISTRY METHOD 06/03/2025 12:48 PM [facility] CO2 31 21 - 32 mmol/L LAB CHEMISTRY METHOD 06/03/2025 12:48 PM [facility] Anion Gap 3 3 - 11 LAB CHEMISTRY METHOD 06/03/2025 12:48 PM [facility] Glucose 120(H) 70 - 100 mg/dL LAB CHEMISTRY METHOD 06/03/2025 12:48 PM [facility] BUN 22 5 - 25 mg/dL LAB CHEMISTRY METHOD 06/03/2025 12:48 PM [facility] Creatinine 1.15 0.70 - 1.30 mg/dL LAB CHEMISTRY METHOD 06/03/2025 12:48 PM [facility] eGFR 71 >=60 mL/min/1. 73m2 LAB CHEMISTRY METHOD 06/03/2025 12:48 PM [facility] Comment:Calculation based on the Chronic Kidney Disease Epidemiology Collaboration (CKD-EPI) equation refit without adjustment for race. BUN/Creatinine Ratio 19.1 LAB CHEMISTRY METHOD 06/03/2025 12:48 PM [facility] Calcium 9.1 8.5 - 10.5 mg/dL LAB CHEMISTRY METHOD 06/03/2025 12:48 PM [facility] AST (SGOT) 17 10 - 42 unit/L LAB CHEMISTRY METHOD 06/03/2025 12:48 PM [facility] ALT (SGPT) 28 10 - 60 unit/L LAB CHEMISTRY METHOD 06/03/2025 12:48 PM [facility] Alkaline Phosphatase 74 42 - 121 unit/L LAB CHEMISTRY METHOD 06/03/2025 12:48 PM [facility] Total Protein 7.1 6.0 - 8.0 g/dL LAB CHEMISTRY METHOD 06/03/2025 12:48 PM [facility] Albumin 4.1 3.2 - 5.0 g/dL LAB CHEMISTRY METHOD 06/03/2025 12:48 PM [facility] Total Bilirubin 0.5 0.0 - 1.4 mg/dL LAB CHEMISTRY METHOD 06/03/2025 12:48 PM [facility] Blood Venous blood specimen / Unknown Venipuncture / Unknown 06/03/2025 8:29 AM EDT 06/03/2025 8:29 AM EDT us Yvonne Haider MD LAB BLOOD ORDERABL ES Final Result [facility] [address] [place] [address], [place] [phone] * Depression Screening (08/01/2024) Pathologist [facility] Depression Screening Abstracted Historical Provider HEALTH MAINTENANCE Final Result * Colonoscopy (05/10/2022) Pathologist [facility] Colonoscopy No Interpretation , Abstracted Anatomical Region Laterality Modality Other Historical Provider HEALTH MAINTENANCE Final Result * Hepatitis C Screening (05/21/2013) [facility] Hepatitis C Screening Abstracted Historical Provider HEALTH MAINTENANCE Final Result from Last 3 Months or Most Recently Relevant to Health Maintenance Insurance MEDICARE [place]ID [place] Care Teams Quality Control Tester Relationship Specialty Start Date End Date Yvonne Haider MD [address] [place] [address] PCP - General Internal Medicine 07/23/22
--- NOTE | 2025-10-21 09:16 | MHC.OFFVIS ---
Intake Visit Reasons: 3m/med review Intake Note: Patient is present for a 3m med review Urology Med: Tadalafil Blood Thinner: None Antibiotic Allergy:None Waterworks Pump Station Operator Required: No Accompanied by: Self / Same As Patient Allergies No Known Allergies (No Known Allergies*) Allergy (Verified 10/21/25 09:16) HPI Comments Details: --Don is a 65-year-old male followed for BPH and lower urinary tract symptoms of weak urinary stream and slowing of urinary flow he also has complaints of ED. He has had he has a history of nephrolithiasis. He is on tadalafil. Last PSA 07/15/2025 was 0.94. History of Present Illness The patient is a 65-year-old individual presenting with Benign Prostatic Hyperplasia (BPH) and Erectile Dysfunction (ED). The patient reports lower urinary tract symptoms, including a weak urinary stream and slowing of urinary flow, which are consistent with BPH. The patient has been experiencing these symptoms for an unspecified duration and is currently on tadalafil for management. The patient's history includes nephrolithiasis, which was noted during a previous evaluation. A renal ultrasound conducted on 02/08/25 revealed punctate calcifications in the left kidney, which may represent calcifications or vascular changes. The patient is currently taking tadalafil 5 mg daily for Erectile Dysfunction, with mixed results reported in terms of achieving orgasm and ejaculation. The patient has discontinued finasteride, which was previously prescribed for BPH management. The patient's last Prostate-Specific Antigen (PSA) test on 07/15/25 was 0.94, indicating stable prostate health. The patient has undergone a cystoscopy on 07/26/25, which showed bilobar enlargement and mild prominence of the median lobe. Results - Labs: Prostate-Specific Antigen (PSA) test on 07/15/25 was 0.94 - Imaging: Renal ultrasound on 02/08/25 showed punctate calcifications in the left kidney - Procedure: Cystoscopy on 07/26/25 revealed bilobar enlargement and mild prominence of the median lobe Plan 1. Benign Prostatic Hyperplasia (Bph) - Continue monitoring urinary symptoms and consider additional medications if symptoms persist. - Plan for a follow-up in six months with a urine flow test to assess urinary function. - Consider repeating PSA testing during the follow-up visit. 2. Erectile Dysfunction (Ed) - Continue tadalafil 5 mg daily, with the option to add a 20 mg dose once a week if needed. - Evaluate the effectiveness of current treatment and adjust as necessary based on patient response. 07/26/25--Here for cystoscopy. Don is a 64 year being followed for BPH, with LUTS of incomplete bladder emptying, nephrolithiasis and erectile disorder. Cystoscopy findings: prostatic urethra bilobar enlargement, mild prominence of median lobe, bulbous urethra WNL, no suspicious bladder lesions visualized Discussed treatment options, green light laser Plan proscar 5 mg daily 04/26/25--Don is a 64-year-old male who has been followed for kidney stones he had a renal ultrasound done on 02/08/2025 with punctate hyperechoic changes which may be related to kidney stones versus blood vessels. The patient is a 64-year-old male presenting with urinary symptoms. He has been experiencing incomplete bladder emptying, noted by an elevated post-void residual volume on bladder scan. The patient was previously diagnosed with nephrolithiasis, with recent imaging showing potential small stones. He has symptoms consistent with benign prostatic hyperplasia, including urgency, hesitancy, and weak stream, particularly exacerbated throughout the day. He manages erectile dysfunction with daily tadalafil successfully. There has been no recent PSA test, as found upon chart review, and urinalysis conducted today is negative. Urinary Symptoms Review - Incomplete bladder emptying noted on bladder scan. - Intermittent urgency and weak stream, primarily worsening through the day. - Hesitancy noted when initiating urination. - No pain or pressure symptoms discussed. Results - Tests and Diagnostics: - Renal ultrasound on 02/08/25: Hyperechoic changes suggestive of nephrolithiasis versus blood vessels. Discussion Notes I discussed with the patient the importance of addressing his symptoms of urinary retention and the possible contributions of benign prostatic hyperplasia. We reviewed the potential need for procedural evaluation via cystoscopy to examine the urethra and bladder for obstruction. Detailed information regarding lifestyle adjustments and medication use was communicated for optimal outcomes. 12/26/23---Telehealth---Don is a 63 year old male. He is a patient of Dr. Cabrera. He is seen for the following urologic conditions: - nephrolithiasis - lower urinary tract symptoms - Peyronie's disease - erectile dysfunction The patient states he is doing well. I have reviewed renal ultrasound 11/07/2023. Right renal midpole 0.8 cm calculus. No hydronephrosis. Right upper pole 2.6 cm cyst with benign features. Plan- continue to monitor the kidney stone. Follow-up in 1 year renal ultrasound prior. Continue Cialis 5 mg daily LV: 05/24/23--Continue good effect with daily tadalafil Thinks he passed a stone last week Six month follow-up imaging Nephrolithiasis Longstanding Composition - 08/16 calcium oxalate stone monohydrate 80% Imaging - 01/19 renal ultrasound punctate stones bilateral - 05/20 renal ultrasound question right small stone Lower urinary tract symptoms Weak urinary stream Filling incomplete emptying No prior therapy Erectile dysfunction Progressive Able to obtain but cannot maintain erection Good response to daily tadalafil Peyronie's disease Not interfering with intercourse PFSH Medical History History of kidney stones Benign prostatic hyperplasia with lower urinary tract symptoms Other obstructive and reflux uropathy Surgical History History of surgery Results AMB Urinalysis, Automated UA Leukoctes 0 Renea/uL Last Edit by Hilda Forte on 10/21/25 14:14 UA Nitrite Negative Last Edit by Hilda Forte on 10/21/25 14:14 UA Urobilinogen 0.2 mg/dL Last Edit by Hilda Forte on 10/21/25 14:14 UA Protein 15 mg/dL Last Edit by Hilda Forte on 10/21/25 14:14 UA pH 6.0 Last Edit by Hilda Forte on 10/21/25 14:14 UA Blood 0 [place]ano/uL Last Edit by Hilda Forte on 10/21/25 14:14 UA Specific Fisher 1.015 Last Edit by Hilda Forte on 10/21/25 14:14 UA Ketone Negative Last Edit by Hilda Forte on 10/21/25 14:14 UA Bilirubin 0 mg/dL Last Edit by Hilda Forte on 10/21/25 14:14 UA Glucose 0 mg/dL Last Edit by Hilda Forte on 10/21/25 14:14 Results Reviewed Results Reviewed: Date of Service: 02/08/25 CLINICAL HISTORY: N20.0 - Calculus of kidney US Renal Comparison: US/SR - US RENAL BI - 12/11/23 08:03 EST Findings: Examination limited by patient's body habitus and bowel gas. Right kidney normal in echotexture measures 12.1 cm x 5.7 cm x 4.8 cm. A 2.2 cm x 2.1 cm x 2.6 cm simple anechoic cyst of the right kidney similar to previous examination. Left kidney normal in echotexture measures 10.6 cm x 5.9 cm x 4.5 cm. No collecting system dilatation of either kidney. Normal color Doppler. Multiple echogenic foci seen in the left kidney which may represent blood vessels versus nonobstructing stones. IMPRESSION: 1. Multiple punctate echogenic foci in left kidney may represent blood vessels versus calculi. 2. No hydronephrosis bilaterally. 3. Stable small right renal simple cyst. Date of Service: 11/07/23 EXAMINATION: US RETROPERITONEAL LIMITED (RENAL ONLY) CLINICAL INFORMATION: Calculus of kidney. COMPARISON: Renal ultrasound 04/29/2023 [address] 01/22/2022. CT abdomen and pelvis 10/13/2019. TECHNIQUE: Real-time imaging of the kidneys. Limited visualization due to bowel gas. FINDINGS: RIGHT KIDNEY: 11.0 x 5.9 x 5.5 cm (SAG x AP x TRV). Upper pole 2.3 x 2.4 x 2.6 cm cyst with benign features. There is no indication for follow-up imaging. Right renal midpole 0.8 cm calculus. No hydronephrosis. Limited visualization. LEFT KIDNEY: 11.1 x 5.7 x 5.4 cm (SAG x AP x TRV). No hydronephrosis. No renal calculi. Limited visualization. IMPRESSION: 1. Right renal midpole 0.8 cm calculus. No hydronephrosis. 2. Right upper pole 2.6 cm cyst with benign features. There is no indication for follow-up imaging. Assessment & Plan Assessment & Plan Orders: Orders AMB Urinalysis Automated Today Z13.9 - Encounter for screening, unspecified Coding
== END 2025-10-21 10:05 | disposition home or self-care (01) ==
LOC: HO.HUSH 08:19
PROVIDERS: PCP Internal Medicine; Visit Provider Urology
DX: Z13.9 Encounter for screening, unspecified (principal)

== ENCOUNTER → 2025-10-21 08:19 | Outpatient (BNVA) | payer MEDICARE, MEDICAID, SELFPAY | PROVIDERS: PCP Internal Medicine; Visit Provider Urology | DX: N40.1 Benign prostatic hyperplasia with lower urinary tract symptoms (principal); R39.12 Poor urinary stream; N48.6 Induration penis plastica; N52.9 Male erectile dysfunction, unspecified; N20.0 Calculus of kidney | CPT/HCPCS: 81003; 99212 ==